=== PATIENT | male | born 1955 | race Caucasian/White ===

== ENCOUNTER → 2017-05-06 | Outpatient (CLI) | payer BC ==
--- NOTE | 2017-05-06 11:25 | MR ---
EXAMINATION TYPE: MR brain wo con DATE OF EXAM: 05/06/2017 COMPARISON: CT brain March 08, 2016 HISTORY: Memory loss, CVA, and left-sided hyperreflexia all per order. Short-term memory loss and rig ht-sided hearing loss per patient. TECHNIQUE: Multiplanar, multisequence imaging of the brain and brainstem is performed without IV cont rast. FINDINGS: Diffusion weighted images demonstrate no evidence of a recent infarct or other diffusion abnormality. There is no worrisome extra-axial fluid collection. There is persistent mild diffuse ventricular and sulcal prominence consistent with mild age-related cerebral atrophy. Scattered foci of T2 hyperintens ity are seen throughout the deep and periventricular white matter. Approximately 40-50 small lesions are present with largest measuring 5 mm left parietal level on axial image 18. Midline structures demonstrate normal morphology. The craniocervical junction appears within normal limits. Normal vascular flow voids are present. The visualized sinuses are clear and the globes are i ntact. Increased fluid signal right mastoid air cells is redemonstrated. IMPRESSION: 1. No evidence of a recent infarct. 2. Mild diffuse age-related cerebral atrophy and mild to moderate chronic small vessel ischemic silveira e is felt present. 3. Persistent increased fluid signal right mastoid air cells raises concern for right-sided mastoidit is. Clinical correlation advised.
== END | disposition home or self-care (01) ==
LOC: RADMRIMAIN 10:43
PROVIDERS: ATTEND Psychiatry & Neurology Neurology
DX: R41.3 Other amnesia (principal); R53.1 Weakness; I63.9 Cerebral infarction, unspecified
CPT/HCPCS: 70551

== ENCOUNTER → 2017-07-06 | Outpatient (CLI) | payer BC ==
--- NOTE | 2017-07-06 18:53 | CONS ---
CONSULTATION DATE OF SERVICE: 07/06/2017 A 61-year-old gentleman has been evaluated in the sleep center for possible obstructive sleep apnea-hypopnea syndrome. HISTORY OF PRESENT ILLNESS AND SLEEP-WAKE EVALUATION: Patient's usual sleep schedule from 10:30 p.m. until 5:30 a.m. He does not have problem with falling asleep, although has TV set in bedroom. He sleeps usually on the side position with snoring. Snoring is very loud, so his cannot sleep in the same room with him. He wakes up from sleep 3 times with nocturia, dry mouth, grinding teeth. During the day, he may feel some sleepiness. [place] Sleepiness Scale is 9. PAST MEDICAL HISTORY: Hypertension, diabetes, hyperlipidemia. PAST SURGICAL HISTORY: Tonsillectomy, adenoidectomy, uvulectomy. FAMILY HISTORY: Hypertension, heart problems, hyperlipidemia, stroke, snoring, diabetes. MEDICATIONS: 1. Crestor. 2. Glipizide. 3. Bystolic. SOCIAL HISTORY: Positive history of smoking about 1 pack per week, quit more than 15 years ago. Alcohol consumption up to a 6-pack daily. REVIEW OF SYSTEMS: Multiple awakenings from sleep, sleepiness and tiredness during the day. PHYSICAL EXAMINATION: GENERAL: A 61-year-old gentleman without distress. VITAL SIGNS: BP 137/80, HR 90, RR 16, height 5 feet 7-1/2 inches, weight 200.4, BMI 30.8. Neck 17-1/2 inches in circumference. Temperature 98.4, oxygen saturation on room air 97%. HEENT: PERRLA, EOMI, evaluation of oropharynx showed tongue protrudes midline, low position of soft palate. A very short distance between soft palate and pharyngeal wall. No uvula. Restriction of nasal breathing. NECK: Supple, no JVD. Thyroid is not palpable. LUNGS: Clear to percussion and to auscultation. Good air exchange. No wheezing or rhonchi. HEART: S1, S2 with some extra systoles. ABDOMEN: Obese, soft and nontender. Bowel sounds are present. No organomegaly appreciated. EXTREMITIES: No clubbing or cyanosis. 1+ ankle edema. HEALTH EDUCATION ASSISTANT: Awake, alert, and oriented X3. Cranial nerves 2 to 7 intact. There is no fasciculation or atrophy. noted. No focal deficits observed. IMPRESSION: 1. Snoring, multiple awakenings from sleep, low position of soft palate, restriction of nasal breathing, wide neck, obesity, obstructive sleep apnea-hypopnea syndrome. 2. Obesity, body mass index 30.8. 3. Hypertension. 4. Diabetes mellitus. 5. Hyperlipidemia. 6. Status post tonsillectomy and adenoidectomy. 7. Status post uvulectomy. 8. Mild swelling of ankles. PLAN: 1. Polysomnography for evaluation of patient's breathing during sleep. 2. CPAP/BiPAP titration if sleep study confirms obstructive sleep apnea-hypopnea syndrome. 3. Preferable position during sleep on the side. 4. No driving if patient feels any sleepiness. Patient is aware of civil and criminal liability for unsafe driving. 5. I will see patient for follow up visit to explain results of testing and following plan. Thank you very much for referring this patient for consultation. Sincerely, Mauri Sandoval MD, PhD, FAASM Diplomat of [place] [employer] [place] [employer] Joint Supervisor of [facility] [place] MMODL / IJN: [id number] /
== END ==
LOC: SLEEP 16:27
PROVIDERS: ATTEND Internal Medicine
DX: G47.33 Obstructive sleep apnea (adult) (pediatric) (principal); E66.9 Obesity, unspecified; I10 Essential (primary) hypertension; E11.9 Type 2 diabetes mellitus without complications; E78.5 Hyperlipidemia, unspecified; M79.89 Other specified soft tissue disorders; Z68.30 Body mass index [BMI] 30.0-30.9, adult; Z90.89 Acquired absence of other organs; Z79.899 Other long term (current) drug therapy; Z87.891 Personal history of nicotine dependence
CPT/HCPCS: 99211

== ENCOUNTER → 2017-10-20 | Outpatient (CLI) | payer BC ==
--- NOTE | 2017-10-20 18:44 | PN ---
PROGRESS NOTE DATE OF SERVICE: 10/20/2017 This patient is a 62-year-old gentleman who has been followed in the sleep center for treatment of severe obstructive sleep apnea-hypopnea syndrome. Recently patient had a polysomnogram and CPAP titration, and I discussed results of sleep studies with the patient and family in detail. The patient was started on treatment with CPAP and uses the equipment every night for the whole night. He sleeps better. He feels better during the day and he does not snore anymore like he did before. I checked his CPAP unit. Usage is 100% of the time for more than 4 hours, average usage 5.9 hours. Pressure is in the range of 10.7 to 11 cm of water. Leak is 29 L/minute. Apnea-hypopnea index 3.6 for the last month, which is in normal range. [place] Sleepiness Scale today is 3. MEDICATIONS: 1. Crestor. 2. Glipizide. 3. Bystolic. PHYSICAL EXAMINATION: Patient in no distress. BP 157/80, HR 88, RR 16, weight 202, temperature 98.9, oxygen saturation at room air 97%. HEENT: PERRLA, EOMI. Evaluation of oropharynx showed tongue protrudes midline; moderately low position of soft palate. Short distance between the soft palate and posterior pharyngeal wall. Status post uvulectomy. NECK: Supple. No JVD. Thyroid is not palpable. LUNGS: Clear to percussion and to auscultation. Good air exchange. No wheezing or rhonchi. HEART: S1, S2 regular. No murmurs, gallops or rubs. ABDOMEN: Slightly obese. EXTREMITIES : No clubbing or cyanosis. ACADEMIC COUNSELOR: Awake, alert, and oriented X3. Cranial nerves 2 to 7 intact. There is no fasciculation or atrophy. noted. No focal deficits observed. IMPRESSION: 1. Severe obstructive sleep apnea/hypopnea syndrome. Apnea-hypopnea index 40.2 with oxygen desaturation to 82%, under control with CPAP at 11 cm of water. Patient demonstrated 100% compliance with treatment, benefitting from treatment. 2. Periodic limb movements have been documented during titration. No leg movements at the present time while on treatment with CPAP. 3. Obesity. 4. Hypertension. 5. Diabetes mellitus. 6. Hyperlipidemia. 7. Status post tonsillectomy and adenoidectomy. 8. Status post uvulectomy. 9. History of mild swelling of the legs. PLAN: 1. Continue treatment with CPAP every night with the same regimen. 2. Losing weight. 3. Sleep hygiene with regular time in bed for at least 8 hours. 4. No driving if feeling any sleepiness. 5. We will consider using [employer] nasal pillows. Thank you very much for allowing me to participate in the management of your patient. Sincerely, Mauri Sandoval MD, PhD, FAASM Diplomat of [place] [employer] [place] [employer] Negotiator Sales of [facility] [employer] MMODL / IJN: [id number] /
== END | disposition home or self-care (01) ==
LOC: SLEEP 16:02
PROVIDERS: ATTEND Internal Medicine
DX: G47.33 Obstructive sleep apnea (adult) (pediatric) (principal); G47.61 Periodic limb movement disorder; E66.9 Obesity, unspecified; I10 Essential (primary) hypertension; E11.9 Type 2 diabetes mellitus without complications; E78.5 Hyperlipidemia, unspecified; Z99.89 Dependence on other enabling machines and devices; Z90.89 Acquired absence of other organs; Z79.899 Other long term (current) drug therapy

== ENCOUNTER 2018-02-20 16:45 | Emergency (ER) | payer BC ==
[2018-02-20 16:54] VITALS: RESP 18
[2018-02-20 17:32] LABS: Basophils % (A) 0 %; Eosinophils # (A) 0.1 k/uL (0-0.7); Eosinophils % (A) 1 %; HCT 46.1 % (39.0-53.0); HGB 15.7 gm/dL (13.0-17.5); Lymphocytes # (A) 1.1 k/uL (1.0-4.8); Lymphocytes % (A) 13 %; MCH 31.6 pg (25.0-35.0); Monocytes # (A) 0.5 k/uL (0-1.0); Monocytes % (A) 6 %; Neutrophils # (A) 6.8 k/uL (1.3-7.7); Neutrophils % (A) 77 %; Platelet Count 189 k/uL (150-450); RBC 4.96 m/uL (4.30-5.90); RDW 13.6 % (11.5-15.5); WBC 8.8 k/uL (3.8-10.6)
[2018-02-20 17:42] LABS: Calcium 9.1 mg/dL (8.4-10.2); Potassium 4.4 mmol/L (3.5-5.1); Total Bilirubin 0.6 mg/dL (0.2-1.3); Total Protein 6.4 g/dL (6.3-8.2)
[2018-02-20 17:51] LABS: Creatine Kinase 155 U/L (55-170)
[2018-02-20 18:03] LABS: Troponin I <0.012 ng/mL (0.000-0.034)
[2018-02-20 18:06] LABS: Creatine Kinase MB 2.5 ng/mL (0.0-2.4)
--- NOTE | 2018-02-20 20:44 | ED ---
SOB HPI - General Chief Complaint: Shortness of Breath Stated Complaint: dyspnea, poss chf Time Seen by Provider: 02/20/18 20:25 Source: patient, RN notes reviewed Mode of arrival: ambulatory Limitations: no limitations - History of Present Illness Initial Comments: This is a 62-year-old male who presents to the emergency department with chief complaint of shortness of breath for the past one month. Patient states that he contacted his primary care provider, Dr. Montana, but was unable to get in for an appointment. He presented to [facility] today and had blood work and a chest x-ray. Patient was sent to the emergency department because he was told there was fluid on his lungs. Patient also reports chest discomfort when he takes a deep breath in. Patient states that his shortness of breath is on exertion. He also states that he has bilateral lower extremity swelling. Denies any recent falls, injuries or trauma. Denies any personal cardiac history. Denies fevers or chills, abdominal pain, nausea or vomiting, diarrhea or constipation, dysuria or hematuria. - Related Data Home Medications Medication Instructions Recorded Confirmed Aspirin [Adult Low Dose Aspirin EC] 81 mg PO DAILY 02/20/18 02/20/18 Levothyroxine Sodium [Synthroid] 25 mcg PO DAILY 02/20/18 02/20/18 Rosuvastatin Calcium [Crestor] 10 mg PO DAILY 02/20/18 02/20/18 glipiZIDE XL [Glucotrol Xl] 5 mg PO BID 02/20/18 02/20/18 Allergies Allergy/AdvReac Type Severity Reaction Status Date / Time No Known Allergies Allergy Verified 02/20/18 21:00 Review of Systems ROS Statement: Those systems with pertinent positive or pertinent negative responses have been documented in the HPI. ROS Other: All systems not noted in ROS Statement are negative. Past Medical History Past Medical History: Hypertension History of Any Multi-Drug Resistant Organisms: None Reported Past Surgical History: No Surgical Hx Reported Past Psychological History: No Psychological Hx Reported Smoking Status: Never smoker Past Alcohol Use History: Daily Past Drug Use History: None Reported General Exam - General Exam Comments Initial Comments: General: Awake and alert, well-developed; in no apparent distress. HEENT: Head atraumatic, normocephalic. Pupils are equal, round and reactive to light. Extraocular movements intact. Oropharynx moist without erythema or exudate. Neck: Supple. Normal ROM. Cardiovascular: Regular rate and rhythm. No murmurs, rubs or gallops. Chest symmetrical. Respiratory: Lungs clear to auscultation bilaterally. No wheezes, rales or rhonchi. Normal respiratory effort with no use of accessory muscles. Musculoskeletal: Normal ROM, no tenderness bilateral upper and lower extremities. Ambulating normally. Skin: [place], warm and dry without rashes or lesions. 2+ bilateral lower extremity pitting edema. Neurological: Alert and oriented x3. CN II-XII grossly intact. Speech is fluent and answers are appropriate. No focal neuro deficits. Psychiatric: Normal mood and affect. No overt signs of depression or anxiety noted. Limitations: no limitations Course Vital Signs 02/20/18 02/20/18 16:51 21:28 Temperature 97.9 F Pulse Rate 92 83 Respiratory 18 18 Rate Blood Pressure 150/77 O2 Sat by Pulse 96 98 Oximetry Medical Decision Making - Medical Decision Making This is a 62-year-old male who presents to the emergency department with chief complaint of shortness of breath for the past one month. Patient was seen at [facility] and sent to the emergency department for further evaluation. Patient states that his x-ray showed possible CHF and pleural effusions. Patient reports that over the past month he has developed bilateral lower extremity swelling. He denies any significant chest pain but does state that he has discomfort when he takes a deep breath in. EKG revealed normal sinus rhythm. Troponin is negative. BNP was elevated at 736. Chest x-ray revealed evidence for small right pleural effusion and no evidence for heart failure. A d-dimer was collected was elevated at 1.31. I discussed with patient and at bedside recommendation for CTA. They are in agreement. CT anterior chest was obtained and revealed no evidence for acute pulmonary embolisms. It did note a right pleural effusion and infiltrate as well as a left lingular infiltrate. Patient states that he did recently finish a course of steroids and antibiotics. Patient's vital signs have been stable and he is in no acute distress. He will be discharged home with referrals to pulmonology and cardiology for further assessment. Patient is in agreement with this plan and voices understanding. All questions answered. - Lab Data Result diagrams: 02/20/18 17:24 02/20/18 17:24 Lab Results 02/20/18 02/20/18 02/20/18 Range/Units 17:24 17:24 17:24 WBC 8.8 (3.8-10.6) k/uL RBC 4.96 (4.30-5.90) m/uL Hgb 15.7 (13.0-17.5) gm/dL Hct 46.1 (39.0-53.0) % MCV 93.0 (80.0-100.0) fL MCH 31.6 (25.0-35.0) pg MCHC 34.0 (31.0-37.0) g/dL RDW 13.6 (11.5-15.5) % Plt Count 189 (150-450) k/uL Neutrophils % 77 % Lymphocytes % 13 % Monocytes % 6 % Eosinophils % 1 % Basophils % 0 % Neutrophils # 6.8 (1.3-7.7) k/uL Lymphocytes # 1.1 (1.0-4.8) k/uL Monocytes # 0.5 (0-1.0) k/uL Eosinophils # 0.1 (0-0.7) k/uL Basophils # 0.0 (0-0.2) k/uL D-Dimer (<0.60) mg/L FEU Sodium 139 (137-145) mmol/L Potassium 4.4 (3.5-5.1) mmol/L Chloride 103 (98-107) mmol/L Carbon Dioxide 25 (22-30) mmol/L Anion Gap 11 mmol/L BUN 20 (9-20) mg/dL Creatinine 1.08 (0.66-1.25) mg/dL Est GFR (CKD-EPI)AfAm 84 (>60 ml/min/1.73 sqM) Est GFR (CKD-EPI)NonAf 73 (>60 ml/min/1.73 sqM) Glucose 188 H (74-99) mg/dL Calcium 9.1 (8.4-10.2) mg/dL Total Bilirubin 0.6 (0.2-1.3) mg/dL AST 25 (17-59) U/L ALT 44 (21-72) U/L Alkaline Phosphatase 48 (38-126) U/L Total Creatine Kinase 155 (55-170) U/L CK-MB (CK-2) 2.5 H* (0.0-2.4) ng/mL CK-MB (CK-2) Rel Index 1.6 Troponin I <0.012 (0.000-0.034) ng/mL NT-Pro-B Natriuret Pep pg/mL Total Protein 6.4 (6.3-8.2) g/dL Albumin 4.0 (3.5-5.0) g/dL 02/20/18 02/20/18 Range/Units 17:24 17:24 WBC (3.8-10.6) k/uL RBC (4.30-5.90) m/uL Hgb (13.0-17.5) gm/dL Hct (39.0-53.0) % MCV (80.0-100.0) fL MCH (25.0-35.0) pg MCHC (31.0-37.0) g/dL RDW (11.5-15.5) % Plt Count (150-450) k/uL Neutrophils % % Lymphocytes % % Monocytes % % Eosinophils % % Basophils % % Neutrophils # (1.3-7.7) k/uL Lymphocytes # (1.0-4.8) k/uL Monocytes # (0-1.0) k/uL Eosinophils # (0-0.7) k/uL Basophils # (0-0.2) k/uL D-Dimer 1.31 H (<0.60) mg/L FEU Sodium (137-145) mmol/L Potassium (3.5-5.1) mmol/L Chloride (98-107) mmol/L Carbon Dioxide (22-30) mmol/L Anion Gap mmol/L BUN (9-20) mg/dL Creatinine (0.66-1.25) mg/dL Est GFR (CKD-EPI)AfAm (>60 ml/min/1.73 sqM) Est GFR (CKD-EPI)NonAf (>60 ml/min/1.73 sqM) Glucose (74-99) mg/dL Calcium (8.4-10.2) mg/dL Total Bilirubin (0.2-1.3) mg/dL AST (17-59) U/L ALT (21-72) U/L Alkaline Phosphatase (38-126) U/L Total Creatine Kinase (55-170) U/L CK-MB (CK-2) (0.0-2.4) ng/mL CK-MB (CK-2) Rel Index Troponin I (0.000-0.034) ng/mL NT-Pro-B Natriuret Pep 736 pg/mL Total Protein (6.3-8.2) g/dL Albumin (3.5-5.0) g/dL - EKG Data EKG Comments: 17:44:08. Normal sinus rhythm, possible left atrial enlargement. Ventricular rate 85 bpm, MO interval 144, QRS duration 88, QT/QTC 380/452 - Radiology Data Radiology results: report reviewed, image reviewed Chest x-ray impression: Small right pleural effusion. No heart failure seen. CT angio chest impression: No evidence of pulmonary embolism. Right pleural effusion and right basilar pulmonary infiltrate and atelectasis. Small lingular infiltrate. Disposition Clinical Impression: Pleural effusion, Dyspnea on exertion Disposition: HOME SELF-CARE Condition: Good Instructions: Pleural Effusion (ED), Dyspnea (ED) Additional Instructions: Please follow-up with Dr. Cuevas, [facility] for further evaluation. Please follow up with primary care provider within 1-2 days. Return to emergency department if symptoms should worsen or any concerns arise. Is patient prescribed a controlled substance at d/c from ED?: No Referrals: Venu Montana DO [Primary Care Provider] - 1-2 days Robby Cuevas MD [STAFF PHYSICIAN] - 1-2 days Bravo Schwarz MD [STAFF PHYSICIAN] - 1-2 days Time of Disposition: 22:44
--- NOTE | 2018-02-20 21:07 | XR ---
EXAMINATION TYPE: XR chest 2V DATE OF EXAM: 02/20/2018 COMPARISON: NONE HISTORY: Difficulty breathing TECHNIQUE: Frontal and lateral views of the chest are obtained. FINDINGS: Heart and mediastinum are normal. There is some blunting of right costophrenic angle. Ther e is no gross heart failure. Bony thorax is intact. Lungs are clear of consolidation. IMPRESSION: Small right pleural effusion. No heart failure seen.
--- NOTE | 2018-02-20 22:34 | CT ---
EXAMINATION TYPE: CT angio chest DATE OF EXAM: 02/20/2018 10:26 PM COMPARISON: NONE HISTORY: Elevated d-dimer, dyspnea, and bilateral lower leg edema. CT DLP: 621 mGycm Automated exposure control for dose reduction was used. CONTRAST: CTA scan of the thorax is performed with IV Contrast, patient injected with 75ml mL of Isovue M300, p ulmonary embolism protocol. There are 3-D post processed images.. FINDINGS: There is mild to moderate right pleural effusion. There is some atelectasis and infiltrate at the rig ht lung base. There is no pericardial effusion. Heart is slightly enlarged. There are bilateral bronc hial lymph nodes measure up to 1 cm. There is no mediastinal adenopathy. Thoracic aorta appears theodora l. There is no evidence of aneurysm or dissection. Ascending aorta measures 3.4 cm. I see no filling defects in the pulmonary arteries. The bony thorax is intact. There is some mild travis ear density in the lingula left upper lobe. IMPRESSION: NO EVIDENCE OF PULMONARY EMBOLISM. RIGHT PLEURAL EFFUSION AND RIGHT BASILAR PULMONARY INFILTRATE AND ATELECTASIS. SMALL LINGULA INFILTRATE.
[2018-02-20 23:32] VITALS: BP 186/98; PULSE 77; TEMP 98.1
== END 2018-02-20 23:30 | disposition home or self-care (01) ==
LOC: EC 16:45
DX: J90 Pleural effusion, not elsewhere classified (principal); R06.00 Dyspnea, unspecified; R91.8 Other nonspecific abnormal finding of lung field; I10 Essential (primary) hypertension; Z79.82 Long term (current) use of aspirin; Z79.84 Long term (current) use of oral hypoglycemic drugs; Z79.899 Other long term (current) drug therapy
CPT/HCPCS: 36415; 93005; 85379; 83880; 80053; 82550; 82553; 84484; 85025; 71046; 71275; 99285; Q9967

== ENCOUNTER 2018-02-28 09:26 | Inpatient (IN) | payer BC ==
[2018-02-28] MEDS ORDERED: DILTIAZEM DRIP BOLUS FROM BAG 1 MG SOLN IV ONE ×2 (10:13→11:48)
[2018-02-28] MEDS ORDERED: DILTIAZEM 50 MG in SODIUM CHLORIDE 0.9% 40 ML IV SCH (10:15)
--- NOTE | 2018-02-28 10:19 | ED ---
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 Patient's heart rate has been going between 100 4050 beats a minute. He denies any chest pain he has no feelings of palpitations or tachycardia he has had some exertional dyspnea recently. He has had some edema to his lower extremities which doesn't go away quite as easily as it used to. He has no other complaints no other modifying factors at this time. MD Complaint: rapid heart beat - Related Data Home Medications Medication Instructions Recorded Confirmed Aspirin [Adult Low Dose Aspirin EC] 81 mg PO DAILY 02/20/18 02/28/18 Levothyroxine Sodium [Synthroid] 25 mcg PO DAILY 02/20/18 02/28/18 Rosuvastatin Calcium [Crestor] 10 mg PO DAILY 02/20/18 02/28/18 glipiZIDE XL [Glucotrol Xl] 5 mg PO DAILY 02/20/18 02/28/18 Nebivolol [Bystolic] 5 mg PO HS 02/28/18 02/28/18 Allergies Allergy/AdvReac Type Severity Reaction Status Date / Time No Known Allergies Allergy Verified 02/28/18 10:04 Review of Systems ROS Statement: Those systems with pertinent positive or pertinent negative responses have been documented in the HPI. ROS Other: All systems not noted in ROS Statement are negative. Past Medical History Past Medical History: Heart Failure, Hypertension History of Any Multi-Drug Resistant Organisms: None Reported Past Surgical History: Adenoidectomy, Tonsillectomy Past Psychological History: No Psychological Hx Reported Smoking Status: Former smoker Past Alcohol Use History: Daily Past Drug Use History: None Reported General Exam - General Exam Comments Initial Comments: This a well-developed well-nourished awake alert oriented 3 male Limitations: no limitations General appearance: alert, in no apparent distress Head exam: Present: atraumatic, normocephalic, normal inspection Eye exam: Present: normal appearance, PERRL, EOMI. Absent: scleral icterus, conjunctival injection, periorbital swelling ENT exam: Present: normal exam, mucous membranes moist Neck exam: Present: normal inspection. Absent: tenderness, meningismus, lymphadenopathy Respiratory exam: Present: rales (Right lower lobe rales). Absent: respiratory distress, wheezes, rhonchi, stridor Cardiovascular Exam: Present: tachycardia, normal heart sounds. Absent: systolic murmur, diastolic murmur, rubs, gallop, clicks GI/Abdominal exam: Present: soft, normal bowel sounds. Absent: distended, tenderness, guarding, rebound, rigid Extremities exam: Present: full ROM, normal capillary refill, pedal edema ( Trace edema bilaterally). Absent: tenderness, joint swelling, calf tenderness Back exam: Present: normal inspection Neurological exam: Present: alert, oriented X3, CN II-XII intact Psychiatric exam: Present: normal affect, normal mood Skin exam: Present: warm, dry, intact, normal color. Absent: rash Course Vital Signs 02/28/18 02/28/18 09:29 10:50 Temperature 98 F Pulse Rate 150 H 149 H Respiratory 20 18 Rate Blood Pressure 149/96 144/108 O2 Sat by Pulse 97 97 Oximetry - Reevaluation(s) Reevaluation #1: 02/28/18 11:48 Patient is still tachycardic after initial medication. Workers and will be admitted Reevaluation #2: 02/28/18 11:51 Rest patient has no chest pain or shortness of breath. EKG Findings - EKG Results: EKG: interpreted by ERMD (Atrial flutter with a variable AV block rate was 1 50/ m QRS 80 QT since QTC 344/[address] configuration this is compared with an EKG submitted from Dr. Cuevas's office.) Medical Decision Making - Medical Decision Making I did discuss findings with patient family and Dr. Malhotra the patient be admitted with cardiology consultation atrial flutter with rapid ventricular response also CHF. - Lab Data Result diagrams: 02/28/18 09:41 02/28/18 09:41 Lab Results 02/28/18 02/28/18 02/28/18 Range/Units 09:41 09:41 09:41 WBC 7.4 (3.8-10.6) k/uL RBC 5.16 (4.30-5.90) m/uL Hgb 15.8 (13.0-17.5) gm/dL Hct 48.0 (39.0-53.0) % MCV 93.1 (80.0-100.0) fL MCH 30.7 (25.0-35.0) pg MCHC 33.0 (31.0-37.0) g/dL RDW 13.8 (11.5-15.5) % Plt Count 235 (150-450) k/uL Neutrophils % 67 % Lymphocytes % 21 % Monocytes % 7 % Eosinophils % 1 % Basophils % 1 % Neutrophils # 4.9 (1.3-7.7) k/uL Lymphocytes # 1.6 (1.0-4.8) k/uL Monocytes # 0.6 (0-1.0) k/uL Eosinophils # 0.1 (0-0.7) k/uL Basophils # 0.1 (0-0.2) k/uL PT (9.0-12.0) sec INR (<1.2) APTT (22.0-30.0) sec Sodium 138 (137-145) mmol/L Potassium 5.3 H (3.5-5.1) mmol/L Chloride 105 (98-107) mmol/L Carbon Dioxide 20 L (22-30) mmol/L Anion Gap 13 mmol/L BUN 20 (9-20) mg/dL Creatinine 1.12 (0.66-1.25) mg/dL Est GFR (CKD-EPI)AfAm 81 (>60 ml/min/1.73 sqM) Est GFR (CKD-EPI)NonAf 70 (>60 ml/min/1.73 sqM) Glucose 193 H (74-99) mg/dL Calcium 9.4 (8.4-10.2) mg/dL Magnesium 2.0 (1.6-2.3) mg/dL Total Bilirubin 0.7 (0.2-1.3) mg/dL AST 45 (17-59) U/L ALT 67 (21-72) U/L Alkaline Phosphatase 57 (38-126) U/L Total Creatine Kinase 160 (55-170) U/L CK-MB (CK-2) 2.6 H* (0.0-2.4) ng/mL CK-MB (CK-2) Rel Index 1.6 Troponin I <0.012 (0.000-0.034) ng/mL NT-Pro-B Natriuret Pep pg/mL Total Protein 6.6 (6.3-8.2) g/dL Albumin 4.0 (3.5-5.0) g/dL TSH 4.910 H (0.465-4.680) mIU/L 02/28/18 02/28/18 Range/Units 09:41 09:41 WBC (3.8-10.6) k/uL RBC (4.30-5.90) m/uL Hgb (13.0-17.5) gm/dL Hct (39.0-53.0) % MCV (80.0-100.0) fL MCH (25.0-35.0) pg MCHC (31.0-37.0) g/dL RDW (11.5-15.5) % Plt Count (150-450) k/uL Neutrophils % % Lymphocytes % % Monocytes % % Eosinophils % % Basophils % % Neutrophils # (1.3-7.7) k/uL Lymphocytes # (1.0-4.8) k/uL Monocytes # (0-1.0) k/uL Eosinophils # (0-0.7) k/uL Basophils # (0-0.2) k/uL PT 11.1 (9.0-12.0) sec INR 1.2 H (<1.2) APTT 25.1 (22.0-30.0) sec Sodium (137-145) mmol/L Potassium (3.5-5.1) mmol/L Chloride (98-107) mmol/L Carbon Dioxide (22-30) mmol/L Anion Gap mmol/L BUN (9-20) mg/dL Creatinine (0.66-1.25) mg/dL Est GFR (CKD-EPI)AfAm (>60 ml/min/1.73 sqM) Est GFR (CKD-EPI)NonAf (>60 ml/min/1.73 sqM) Glucose (74-99) mg/dL Calcium (8.4-10.2) mg/dL Magnesium (1.6-2.3) mg/dL Total Bilirubin (0.2-1.3) mg/dL AST (17-59) U/L ALT (21-72) U/L Alkaline Phosphatase (38-126) U/L Total Creatine Kinase (55-170) U/L CK-MB (CK-2) (0.0-2.4) ng/mL CK-MB (CK-2) Rel Index Troponin I (0.000-0.034) ng/mL NT-Pro-B Natriuret Pep 2070 pg/mL Total Protein (6.3-8.2) g/dL Albumin (3.5-5.0) g/dL TSH (0.465-4.680) mIU/L - Radiology Data Radiology results: report reviewed (I did review the imaging no evidence of a small right pleural effusion. Some evidence of congestive findings.), image reviewed Critical Care Time Critical Care Time: Yes Critical Care Time: 37 minutes of critical care time which includes initial conversation with Dr. Cuevas also history physical labs x-rays several reevaluation the patient response to therapy discuss with the patient and his regarding findings discussed with Dr. Malhotra review of old charting that was available admission orders and documentation of the above Disposition Clinical Impression: Atrial flutter, Atrial flutter with rapid ventricular response, Congestive heart failure (CHF), Pleural effusion Disposition: ADMITTED IP TO THIS [facility] Condition: Stable Referrals: Venu Montana DO [Primary Care Provider] - 1-2 days
[2018-02-28] MEDS ORDERED: HEPARIN SODIUM,PORCINE 10,000 UNIT/ML 1 ML VIAL IV STA (10:20)
[2018-02-28 10:44] LABS: Calcium 9.4 mg/dL (8.4-10.2); Potassium 5.3 mmol/L (3.5-5.1); Total Bilirubin 0.7 mg/dL (0.2-1.3); Total Protein 6.6 g/dL (6.3-8.2)
[2018-02-28] MEDS: HEPARIN SOD,PORK IN 0.45% NACL 25,000 UNIT in 0.45% NACL 1 500ML.BAG IV SCH (10:45)
[2018-02-28 10:49] LABS: Basophils # (A) 0.1 k/uL (0-0.2); Basophils % (A) 1 %; Eosinophils # (A) 0.1 k/uL (0-0.7); Eosinophils % (A) 1 %; HGB 15.8 gm/dL (13.0-17.5); Lymphocytes # (A) 1.6 k/uL (1.0-4.8); Lymphocytes % (A) 21 %; MCH 30.7 pg (25.0-35.0); MCV 93.1 fL (80.0-100.0); Mean Platelet Volume 7.7; Monocytes # (A) 0.6 k/uL (0-1.0); Monocytes % (A) 7 %; Neutrophils # (A) 4.9 k/uL (1.3-7.7); Neutrophils % (A) 67 %; Platelet Count 235 k/uL (150-450); RBC 5.16 m/uL (4.30-5.90); RDW 13.8 % (11.5-15.5); WBC 7.4 k/uL (3.8-10.6)
[2018-02-28 10:50] LABS: Creatine Kinase 160 U/L (55-170)
[2018-02-28 10:53] LABS: INR 1.2 (<1.2); Partial Thromboplastin Time 25.1 sec (22.0-30.0); Prothrombin Time 11.1 sec (9.0-12.0)
[2018-02-28 11:02] LABS: Troponin I <0.012 ng/mL (0.000-0.034)
[2018-02-28 11:06] LABS: Creatine Kinase MB 2.6 ng/mL (0.0-2.4)
[2018-02-28] MEDS ORDERED: ASPIRIN 325 MG TAB PO STA (11:53)
[2018-02-28] MEDS: DILTIAZEM 50 MG in SODIUM CHLORIDE 0.9% 40 ML IV SCH ×4 (12:20→22:51)
[2018-02-28 16:51] LABS: Glucose,Whole Blood 131 mg/dL (75-99)
[2018-02-28] MEDS: FUROSEMIDE 40 MG TAB PO SCH ×2 (17:29→22:51)
[2018-02-28] MEDS: INSULIN ASPART 100 UNIT/ML 1 ML 10 ML VIAL SQ SCH ×2 (17:29→20:45)
[2018-02-28 20:43] LABS: Glucose,Whole Blood 177 mg/dL (75-99)
[2018-02-28] MEDS ORDERED: NEBIVOLOL 5 MG TAB PO SCH (21:00)
[2018-03-01] MEDS: HEPARIN SOD,PORK IN 0.45% NACL 25,000 UNIT in 0.45% NACL 1 500ML.BAG IV SCH (02:26)
[2018-03-01] MEDS: INSULIN ASPART 100 UNIT/ML 1 ML 10 ML VIAL SQ SCH ×4 (05:43→21:23)
[2018-03-01 05:53] LABS: Glucose,Whole Blood 134 mg/dL (75-99)
[2018-03-01] MEDS ORDERED: LEVOTHYROXINE 25 MCG TAB PO SCH (06:30)
[2018-03-01] MEDS: DILTIAZEM 50 MG in SODIUM CHLORIDE 0.9% 40 ML IV SCH (08:06)
[2018-03-01] MEDS: ASPIRIN 325 MG TAB PO SCH (08:11)
[2018-03-01] MEDS: FUROSEMIDE 40 MG TAB PO SCH ×2 (08:11→16:54)
[2018-03-01] MEDS: ATORVASTATIN 20 MG TAB PO SCH (08:11)
[2018-03-01] MEDS ORDERED: NON-FORMULARY DRUG (Aspirin [Adult Low Dose Aspirin Ec] 81 MG) PO SCH (09:00)
[2018-03-01] MEDS ORDERED: METOPROLOL TARTRATE 12.5 MG TAB PO SCH (09:45)
--- NOTE | 2018-03-01 09:58 | P.CRDCN ---
History of Present Illness Consult date: 03/01/18 Chief complaint: Shortness of breath History of present illness: This is a pleasant 61-year-old gentleman with a past medical history significant for diabetes, hypertension, and dyslipidemia, was sent directly from Dr. Cuevas to the hospital after he was found to be tachycardic. The patient was directly referred to the emergency room. He was found to be in atrial flutter with RVR. Subsequently he was started on Cardizem drip and converted to normal sinus mechanism. No prior history of atrial flutter or cardiac arrhythmia. No history of coronary artery disease or congestive heart failure in the past. The patient does not follow with any cold header. He denies having any chest pain or chest discomfort but he was having some shortness of breath. No dizziness or lightheadedness, syncope, feeling of heart racing or fluttering. The patient converted to normal sinus mechanism and he has been maintaining normal sinus mechanism. Please note that the patient does drink about 6 packs of beer every day. He also does have history of sleep apnea and uses a CPAP machine. An echocardiogram was performed and we will follow-up on that. He is on Bystolic and we will increase the dose. I will DC the Cardizem drip since the patient was converted. The TSH was checked and came in to be abnormal. He will be started on oral anticoagulation down the line but meanwhile will start the patient on heparin IV because there is a possibility that he might need pleurocentesis. Past Medical History Past Medical History: Heart Failure, Hypertension History of Any Multi-Drug Resistant Organisms: None Reported Past Surgical History: Adenoidectomy, Tonsillectomy Past Psychological History: No Psychological Hx Reported Smoking Status: Former smoker Past Alcohol Use History: Daily Past Drug Use History: None Reported Medications and Allergies Home Medications Medication Instructions Recorded Confirmed Type Aspirin [Adult Low Dose Aspirin EC] 81 mg PO DAILY 02/20/18 02/28/18 History Rosuvastatin Calcium [Crestor] 10 mg PO DAILY 02/20/18 02/28/18 History glipiZIDE XL [Glucotrol XL] 5 mg PO DAILY 02/20/18 02/28/18 History Furosemide [Lasix] 40 mg PO BID@0900,1600 #60 tab 03/01/18 Rx Levothyroxine Sodium [Synthroid] 50 mcg PO DAILY@0630 #30 tab 03/01/18 Rx Nebivolol [Bystolic] 10 mg PO HS #0 03/01/18 02/28/18 Rx Allergies Allergy/AdvReac Type Severity Reaction Status Date / Time No Known Allergies Allergy Verified 02/28/18 10:04 Physical Exam Vitals: Vital Signs Temp Pulse Pulse Resp BP BP Pulse Ox 03/01/18 08:00 98 F 67 16 110/69 97 03/01/18 04:00 98.0 F 58 L 18 129/81 97 03/01/18 00:00 97.6 F 70 18 124/67 95 02/28/18 22:26 96 02/28/18 20:00 97.9 F 108 H 18 118/69 95 02/28/18 12:13 97.5 F L 149 H 18 123/80 95 02/28/18 10:50 149 H 18 144/108 97 Intake and Output 02/28/18 03/01/18 03/01/18 22:59 06:59 14:59 Intake Total 782.666 582.281 360 Balance 782.666 582.281 360 Intake: IV 240 0.9 160 Heparin Sod,Pork in 0.45% 80 NaCl 25,000 unit In 0.45 % NaCl 1 500ml.bag @ 10. 914 UNITS/KG/HR 20 mls/hr IV .Q24H [facility] Rx#: [id number] Intake, IV Titration 302.666 342.281 Amount Diltiazem 50 mg In Sodium 78.333 47.25 Chloride 0.9% 40 ml @ 10 MG/HR 10 mls/hr IV .Q5H [facility] Rx#:[id number] Diltiazem 50 mg In Sodium 120 Chloride 0.9% 40 ml @ 5 MG/HR 5 mls/hr IV .Q10H [facility] Rx#:[id number] Heparin Sod,Pork in 0.45% 224.333 175.031 NaCl 25,000 unit In 0.45 % NaCl 1 500ml.bag @ 10. 914 UNITS/KG/HR 20 mls/hr IV .Q24H [facility] Rx#: [id number] Oral 480 360 Other: Voiding Method Toilet Toilet # Voids 2 Weight 92 kg - Constitutional General appearance: no acute distress - Respiratory Respiratory: right: CTA - Cardiovascular Rhythm: regular Heart sounds: normal: S1, S2 Results 02/28/18 09:41 02/28/18 09:41 Cardiac Enzymes 02/28/18 02/28/18 02/28/18 Range/Units 09:41 09:41 18:18 AST 45 (17-59) U/L CK-MB (CK-2) 2.6 H* (0.0-2.4) ng/mL Troponin I <0.012 <0.012 (0.000-0.034) ng/mL 03/01/18 Range/Units 00:16 AST (17-59) U/L CK-MB (CK-2) (0.0-2.4) ng/mL Troponin I <0.012 (0.000-0.034) ng/mL Coagulation 18 02/28/18 03/01/18 Range/Units 09:41 21:31 03:55 PT 11.1 (9.0-12.0) sec APTT 25.1 33.0 H 43.5 H (22.0-30.0) sec CBC 02/28/18 Range/Units 09:41 WBC 7.4 (3.8-10.6) k/uL RBC 5.16 (4.30-5.90) m/uL Hgb 15.8 (13.0-17.5) gm/dL Hct 48.0 (39.0-53.0) % Plt Count 235 (150-450) k/uL Comprehensive Metabolic Panel 02/28/18 Range/Units 09:41 Sodium 138 (137-145) mmol/L Potassium 5.3 H (3.5-5.1) mmol/L Chloride 105 (98-107) mmol/L Carbon Dioxide 20 L (22-30) mmol/L BUN 20 (9-20) mg/dL Creatinine 1.12 (0.66-1.25) mg/dL Glucose 193 H (74-99) mg/dL Calcium 9.4 (8.4-10.2) mg/dL AST 45 (17-59) U/L ALT 67 (21-72) U/L Alkaline Phosphatase 57 (38-126) U/L Total Protein 6.6 (6.3-8.2) g/dL Albumin 4.0 (3.5-5.0) g/dL Current Medications Generic Name Dose Route Start Last Admin Trade Name Gordoq PRN Reason Stop Dose Admin Aspirin 325 mg 03/01/18 09:00 03/01/18 08:11 Aspirin PO 325 mg DAILY [facility] Administration Atorvastatin Calcium 20 mg 03/01/18 09:00 03/01/18 08:11 Lipitor PO 20 mg DAILY [facility]A Administration Furosemide 40 mg 03/01/18 16:00 Lasix PO BID@0900,1600 [facility] Glipizide 2.5 mg 03/01/18 09:00 03/01/18 08:11 Glucotrol PO 2.5 mg BID [facility] Administration Heparin Sodium/Sodium Chloride 500 mls @ 20 mls/hr 02/28/18 10:15 03/01/18 04 :50 25,000 unit/ Sodium Chloride IV 15.914 units/kg/hr .Q24H [facility] 29.16 mls/hr Titration Protocol 10.914 UNITS/KG/HR Diltiazem HCl 50 mg/ Sodium 50 mls @ 10 mls/hr 02/28/18 12:00 03/01/18 08:06 Chloride IV Not Given .Q5H [facility] 10 MG/HR Insulin Aspart 0 unit 02/28/18 12:30 03/01/18 05:43 Novolog SQ Not Given ACHS [facility] Protocol Levothyroxine Sodium 50 mcg 03/02/18 06:30 Synthroid PO DAILY@0630 [facility] Nebivolol 5 mg 02/28/18 21:00 02/28/18 20:45 Bystolic PO 5 mg HS [facility] Administration Intake and Output 02/28/18 03/01/18 03/01/18 22:59 06:59 14:59 Intake Total 782.666 582.281 360 Balance 782.666 582.281 360 Intake: IV 240 0.9 160 Heparin Sod,Pork in 0.45% 80 NaCl 25,000 unit In 0.45 % NaCl 1 500ml.bag @ 10. 914 UNITS/KG/HR 20 mls/hr IV .Q24H [facility] Rx#: [id number] Intake, IV Titration 302.666 342.281 Amount Diltiazem 50 mg In Sodium 78.333 47.25 Chloride 0.9% 40 ml @ 10 MG/HR 10 mls/hr IV .Q5H [facility] Rx#:[id number] Diltiazem 50 mg In Sodium 120 Chloride 0.9% 40 ml @ 5 MG/HR 5 mls/hr IV .Q10H [facility] Rx#:[id number] Heparin Sod,Pork in 0.45% 224.333 175.031 NaCl 25,000 unit In 0.45 % NaCl 1 500ml.bag @ 10. 914 UNITS/KG/HR 20 mls/hr IV .Q24H [facility] Rx#: [id number] Oral 480 360 Other: Voiding Method Toilet Toilet # Voids 2 Weight 92 kg 02/28/18 09:41 02/28/18 09:41 Assessment and Plan Assessment: Assessment #1 atrial flutter with RVR and the patient converted to normal sinus mechanism #2 diabetes type 2 #3 hypertension #4 alcohol abuse #5 obstructive sleep apnea. Plan #1 in view of the high chads Vascor, portal anticoagulation is recommended. For now he will be on heparin IV for possible pleurocentesis #2 increase the dose of Bystolic #3 follow-up on the echocardiogram #4 follow-up with the patient.
--- NOTE | 2018-03-01 10:39 | P.CNPUL ---
History of Present Illness Consult date: 03/01/18 Reason for consult: other Chief complaint: Atrial fibrillation, pleural effusion History of present illness: Pulmonary consult dated 03/01/2018 62-year-old male who was apparently sent over the from my office to the emergency room. He was in my office and one of my partners for a right-sided pleural effusion. The pleural effusion apparently was noted on a previous admission and a chest x-ray done in the past. A chest x-ray was within my office. Unfortunately, because of the patient's atrial fibrillation/flutter in his rapid ventricular response, the patient was immediately sent to the emergency room where he was evaluated and admitted. He did not have a chest x- ray here and I asked the primary service to order chest x-ray. He is not currently having any shortness of breath. He was restarted on appropriate medications including blood thinners. Pending the results of the chest x-ray, he may or may not need an ultrasound of the chest. He may or may not benefit from thoracentesis pending the result of that. The patient does have a history of heart failure and hypertension as well as hyperlipidemia and hypothyroidism. The patient is a former smoker. Review of Systems A 12 point review of systems is unremarkable this time. He is actually feeling rather well. Past Medical History Past Medical History: Heart Failure, Hypertension History of Any Multi-Drug Resistant Organisms: None Reported Past Surgical History: Adenoidectomy, Tonsillectomy Past Psychological History: No Psychological Hx Reported Smoking Status: Former smoker Past Alcohol Use History: Daily Past Drug Use History: None Reported Medications and Allergies Home Medications Medication Instructions Recorded Confirmed Type Aspirin [Adult Low Dose Aspirin EC] 81 mg PO DAILY 02/20/18 02/28/18 History Rosuvastatin Calcium [Crestor] 10 mg PO DAILY 02/20/18 02/28/18 History glipiZIDE XL [Glucotrol XL] 5 mg PO DAILY 02/20/18 02/28/18 History Furosemide [Lasix] 40 mg PO BID@0900,1600 #60 tab 03/01/18 Rx Levothyroxine Sodium [Synthroid] 50 mcg PO DAILY@0630 #30 tab 03/01/18 Rx Nebivolol [Bystolic] 10 mg PO HS #0 03/01/18 02/28/18 Rx Allergies Allergy/AdvReac Type Severity Reaction Status Date / Time No Known Allergies Allergy Verified 02/28/18 10:04 Physical Exam Osteopathic Statement: *. No significant issues noted on an osteopathic structural exam other than those noted in the History and Physical/Consult. Vitals: Vital Signs Temp Pulse Pulse Resp BP BP Pulse Ox 03/01/18 08:00 98 F 67 16 110/69 97 03/01/18 04:00 98.0 F 58 L 18 129/81 97 03/01/18 00:00 97.6 F 70 18 124/67 95 02/28/18 22:26 96 02/28/18 20:00 97.9 F 108 H 18 118/69 95 02/28/18 12:13 97.5 F L 149 H 18 123/80 95 02/28/18 10:50 149 H 18 144/108 97 Intake and Output 02/28/18 03/01/18 03/01/18 22:59 06:59 14:59 Intake Total 782.666 582.281 360 Balance 782.666 582.281 360 Intake: IV 240 0.9 160 Heparin Sod,Pork in 0.45% 80 NaCl 25,000 unit In 0.45 % NaCl 1 500ml.bag @ 10. 914 UNITS/KG/HR 20 mls/hr IV .Q24H [facility] Rx#: [id number] Intake, IV Titration 302.666 342.281 Amount Diltiazem 50 mg In Sodium 78.333 47.25 Chloride 0.9% 40 ml @ 10 MG/HR 10 mls/hr IV .Q5H [facility] Rx#:[id number] Diltiazem 50 mg In Sodium 120 Chloride 0.9% 40 ml @ 5 MG/HR 5 mls/hr IV .Q10H [facility] Rx#:[id number] Heparin Sod,Pork in 0.45% 224.333 175.031 NaCl 25,000 unit In 0.45 % NaCl 1 500ml.bag @ 10. 914 UNITS/KG/HR 20 mls/hr IV .Q24H [facility] Rx#: [id number] Oral 480 360 Other: Voiding Method Toilet Toilet # Voids 2 Weight 92 kg No acute distress, oriented 3. HEENT examination is grossly unremarkable. Mucous membranes are moist. No oral lesions. Neck supple. Full range of motion. No adenopathy thyromegaly or neck vein distention. Cardiovascular examination reveals regular rhythm rate. S1-S2 normal. No S3 or S4. No discernible murmur noted. Lungs reveal mostly clear breath sounds. No wheezes or rhonchi. Minimal basilar crackles. Abdomen soft bowel sounds are heard. No masses or tenderness. Extremities reveal significant lower extremity pitting edema. Is likely 1-2+. Skin is without rash or lesion. Neurologic examination is brief but nonfocal. Results - Laboratory Findings CBC and BMP: 02/28/18 09:41 02/28/18 09:41 PT/INR, D-dimer PT 11.1 sec (9.0-12.0) 02/28/18 09:41 INR 1.2 (<1.2) H 02/28/18 09:41 Abnormal lab findings: Abnormal Labs 02/28/18 02/28/18 02/28/18 09:41 09:41 09:41 INR 1.2 H APTT Potassium 5.3 H Carbon Dioxide 20 L Glucose 193 H POC Glucose (mg/dL) CK-MB (CK-2) 2.6 H* TSH 4.910 H 02/28/18 02/28/18 02/28/18 16:34 20:41 21:31 INR APTT 33.0 H Potassium Carbon Dioxide Glucose POC Glucose (mg/dL) 131 H 177 H CK-MB (CK-2) TSH 03/01/18 03/01/18 03:55 05:41 INR APTT 43.5 H Potassium Carbon Dioxide Glucose POC Glucose (mg/dL) 134 H CK-MB (CK-2) TSH - Diagnostic Findings Chest x-ray: image reviewed (Labs and medications are reviewed. X-rays are pending.) Assessment and Plan Assessment: Assessment Atrial fibrillation/flutter with a rapid ventricular response History of heart failure. Right-sided pleural effusion History of hypertension History of hyperlipidemia History of hypothyroidism Previous history of tobacco use. Plan: Plan dated 03/01/2018 The patient will get a chest x-ray. We'll go ahead and order an ultrasound the right chest. The patient was initially placed on a Cardizem drip. The patient is now on Bystolic. Other medications are reviewed. Additional recommendations and suggestions are forthcoming. We'll continue to follow. Prognosis is guarded. Time with Patient: Greater than 30
[2018-03-01 11:11] LABS: Basophils # (A) 0.1 k/uL (0-0.2); Basophils % (A) 1 %; Eosinophils # (A) 0.1 k/uL (0-0.7); Eosinophils % (A) 2 %; HCT 45.5 % (39.0-53.0); Lymphocytes # (A) 1.3 k/uL (1.0-4.8); Lymphocytes % (A) 18 %; MCH 31.3 pg (25.0-35.0); MCHC 32.9 g/dL (31.0-37.0); MCV 94.9 fL (80.0-100.0); Mean Platelet Volume 7.2; Monocytes # (A) 0.4 k/uL (0-1.0); Monocytes % (A) 6 %; Neutrophils # (A) 5.1 k/uL (1.3-7.7); Neutrophils % (A) 71 %; Platelet Count 205 k/uL (150-450); RBC 4.79 m/uL (4.30-5.90); RDW 14.4 % (11.5-15.5); WBC 7.1 k/uL (3.8-10.6)
[2018-03-01 11:25] LABS: Calcium 8.8 mg/dL (8.4-10.2); Potassium 4.2 mmol/L (3.5-5.1)
--- NOTE | 2018-03-01 12:15 | XR ---
EXAMINATION TYPE: XR chest 2V DATE OF EXAM: 03/01/2018 COMPARISON: Prior chest x-ray and CT angiogram of the chest 02/20/2018 HISTORY: Pleural effusion TECHNIQUE: Frontal and lateral views of the chest are obtained. FINDINGS: Blunting of the right costophrenic angle persists. Heart size is stable. There is no evide nt pneumothorax. Interstitium is stable. Azygos lobe is noted incidentally. Pulmonary vascularity and jimmy not significantly changed. IMPRESSION: Findings are similar to prior exam. There is right pleural effusion and associated atele ctasis, correlate to exclude pneumonia. Cardiomegaly.
--- NOTE | 2018-03-01 12:16 | US ---
EXAMINATION TYPE: US chest DATE OF EXAM: 03/01/2018 COMPARISON: Chest x-ray same date CLINICAL HISTORY: Pleural effusion, right. EXAM MEASUREMENTS: Right Pleural Effusion fluid pocket: 9.3 cm Right skin to fluid thickness: 3.3 cm Skin to lung 3.4cm. *Please see pics. Lung at 3.4cm within pocket. Right side marked for possible thoracentesis outside the dept. Pulmonologists are able to review the images in the patient?s EMR. IMPRESSIONS: Right pleural effusion
[2018-03-01 12:19] LABS: Glucose,Whole Blood 153 mg/dL (75-99)
--- NOTE | 2018-03-01 15:38 | P.HPIM ---
History of Present Illness H&P Date: 03/01/18 Chief Complaint: Atrial flutter This is a 62-year-old gentleman patient of Dr. [place], Dr. Cuevas. He has underlying history of diabetes mellitus with complications, hypothyroidism and noncompliance medications as patient doesn't want to take too many pain meds, and hyperlipidemia hypertension. He also has pleural effusion being managed by Dr. Cuevas, on his routine visit yesterday for pulmonary check, Dr. Abbott noticed that his heart rate was spitting up, and was found to have to his to one block of atrial flutter. He was subsequently admitted to emergency room. Surprisingly patient does not feel any of these palpitations, he also drinks 6 packs of beer daily, and 1/2 cup of coffee per day, he currently is on beviblock by his PCP. Patient denies any palpitations and lightheadedness chest pain however he does have chronic dependent edema, no diuretics even though he was seen at urgent care In the emergency room, EKG shows atrial flutter heart rate 150, twist 1 block and currently being seen by cardiology, and pulmonary medicine, chest x-ray shows right pleural effusion, IV heparin started until any further and further intervention from pulmonary medicine, might need thoracentesis. Review of Systems Constitutional: Reports as per HPI, Denies anorexia, Denies chills, Denies chronic headaches, Denies chronic pain, Denies daytime sleepiness, Denies fatigue, Denies fever, Denies lethargy, Denies malaise, Denies night sweats, Denies poor appetite, Denies sweats, Denies weakness, Denies weight gain, Denies weight loss Ears, nose, mouth and throat: Reports as per HPI, Denies ant. neck pain, Denies bleeding gums, Denies dental pain, Denies dysphagia, Denies epistaxis, Denies headache, Denies hoarseness, Denies mouth pain, Denies nasal congestion, Denies nasal discharge, Denies neck fullness/pressure, Denies neck lump, Denies nose pain, Denies odynophagia, Denies post-nasal drip, Denies sinus pain, Denies sinus pressure, Denies swelling in mouth, Denies swelling in throat, Denies sore throat, Denies vertigo, Denies voice changes Cardiovascular: Reports as per HPI, Reports decreased exercise tolerance, Reports dyspnea on exertion, Reports irregular heart beat, Reports leg edema, Reports rapid heart beat, Denies chest pain, Denies claudication, Denies edema, Denies high blood pressure, Denies lightheadedness, Denies orthopnea, Denies palpitations, Denies paroxysmal nocturnal dyspnea, Denies phlebitis, Denies shortness of breath, Denies syncope Respiratory: Reports as per HPI, Denies congestion, Denies cough, Denies cough with sputum, Denies dyspnea, Denies excessive sputum, Denies hemoptysis, Denies home oxygen, Denies pain, Denies pain on inspiration, Denies pleurisy, Denies respiratory infections, Denies sleep apnea, Denies snoring, Denies wheezing Gastrointestinal: Reports as per HPI, Denies abdominal pain, Denies belching, Denies bloating, Denies BRBPR, Denies change in bowel habits, Denies coffee ground emesis, Denies constipation, Denies diarrhea, Denies dyspepsia, Denies early satiety, Denies excessive gas, Denies heartburn, Denies hematemesis, Denies hematochezia, Denies indigestion, Denies jaundice, Denies lactose intolerance, Denies loss of appetite, Denies melena, Denies nausea, Denies vomiting Genitourinary: Reports as per HPI, Denies decreased libido, Denies difficulties fathering child, Denies discharge, Denies dysuria, Denies erectile dysfunction, Denies flank pain, Denies genital pain, Denies genital sores, Denies hematuria, Denies impotence, Denies incontinence, Denies kidney stones, Denies nocturia, Denies polyuria, Denies testicular lump, Denies testicular pain, Denies urinary frequency, Denies urinary hesitancy, Denies urinary retention Musculoskeletal: Reports as per HPI, Denies arm numbness/tingling, Denies atrophy, Denies fractures, Denies frequent falls, Denies gait dysfunction, Denies hot joints, Denies leg numbness/tingling, Denies limitation of motion, Denies loss of height, Denies low back pain, Denies morning stiffness, Denies muscle cramps, Denies muscle weakness, Denies myalgias, Denies neck pain, Denies neck stiffness, Denies prior amputations, Denies redness of joints, Denies shooting arm pain, Denies shooting leg pain Integumentary: Reports as per HPI, Denies acne, Denies boils, Denies brittle nails, Denies change in hair/nails, Denies color changes, Denies darkening of skin, Denies depigmentation, Denies dryness, Denies foot/leg ulcers, Denies growths, Denies hirsutism, Denies lesions, Denies onychomycosis, Denies pruritus , Denies rash, Denies sores, Denies striae, Denies unusual bruising, Denies wounds Neurological: Reports as per HPI, Denies aphasia, Denies ataxia, Denies balance difficulties, Denies burning pain, Denies change in mentation, Denies change in smell/taste, Denies change in speech, Denies confusion, Denies convulsions, Denies double vision, Denies gait dysfunction, Denies head injury, Denies headaches, Denies hearing difficulties, Denies lack of coordination, Denies loss of vision, Denies memory loss, Denies migraines, Denies motor disturbance, Denies numbness, Denies paralysis, Denies paresthesias, Denies seizures, Denies sensory deficit, Denies spasticity, Denies syncope, Denies tic, Denies tingling , Denies transient paralysis, Denies tremors, Denies vertigo, Denies weakness, Denies visual changes Psychiatric: Reports as per HPI, Denies anhedonia, Denies anxiety, Denies anxiety attacks, Denies change in appetite, Denies change in libido, Denies change in sleep habits, Denies confusion, Denies depression, Denies difficulty concentrating, Denies disorientation, Denies hallucinations, Denies hopelessness , Denies hypersomnia, Denies insomnia, Denies irritability, Denies memory loss, Denies mood swings, Denies paranoia, Denies sadness/tearfulness, Denies sleep disturbances, Denies suicidal ideation Endocrine: Reports as per HPI Hematologic/Lymphatic: Reports as per HPI Allergic/Immunologic: Reports as per HPI, Denies allergic rhinitis, Denies anaphylaxis, Denies angioedema, Denies gluten intolerance, Denies persistent infections, Denies seasonal allergies, Denies urticaria, Denies wheezing Past Medical History Past Medical History: Heart Failure, Hypertension History of Any Multi-Drug Resistant Organisms: None Reported Past Surgical History: Adenoidectomy, Tonsillectomy Past Psychological History: No Psychological Hx Reported Smoking Status: Former smoker Past Alcohol Use History: Daily Past Drug Use History: None Reported Medications and Allergies Home Medications Medication Instructions Recorded Confirmed Type Aspirin [Adult Low Dose Aspirin EC] 81 mg PO DAILY 02/20/18 02/28/18 History Rosuvastatin Calcium [Crestor] 10 mg PO DAILY 02/20/18 02/28/18 History glipiZIDE XL [Glucotrol XL] 5 mg PO DAILY 02/20/18 02/28/18 History Furosemide [Lasix] 40 mg PO BID@0900,1600 #60 tab 03/01/18 Rx Levothyroxine Sodium [Synthroid] 50 mcg PO DAILY@0630 #30 tab 03/01/18 Rx Nebivolol [Bystolic] 10 mg PO HS #0 03/01/18 02/28/18 Rx Allergies Allergy/AdvReac Type Severity Reaction Status Date / Time No Known Allergies Allergy Verified 02/28/18 10:04 Physical Exam Vitals: Vital Signs Temp Pulse Pulse Resp BP BP Pulse Ox 03/01/18 08:00 98 F 67 16 110/69 97 03/01/18 04:00 98.0 F 58 L 18 129/81 97 03/01/18 00:00 97.6 F 70 18 124/67 95 02/28/18 22:26 96 02/28/18 20:00 97.9 F 108 H 18 118/69 95 02/28/18 12:13 97.5 F L 149 H 18 123/80 95 02/28/18 10:50 149 H 18 144/108 97 02/28/18 09:29 98 F 150 H 20 149/96 97 Intake and Output 02/28/18 03/01/18 03/01/18 22:59 06:59 14:59 Intake Total 782.666 582.281 360 Balance 782.666 582.281 360 Intake: IV 240 0.9 160 Heparin Sod,Pork in 0.45% 80 NaCl 25,000 unit In 0.45 % NaCl 1 500ml.bag @ 10. 914 UNITS/KG/HR 20 mls/hr IV .Q24H [facility] Rx#: [id number] Intake, IV Titration 302.666 342.281 Amount Diltiazem 50 mg In Sodium 78.333 47.25 Chloride 0.9% 40 ml @ 10 MG/HR 10 mls/hr IV .Q5H [facility] Rx#:[id number] Diltiazem 50 mg In Sodium 120 Chloride 0.9% 40 ml @ 5 MG/HR 5 mls/hr IV .Q10H [facility] Rx#:[id number] Heparin Sod,Pork in 0.45% 224.333 175.031 NaCl 25,000 unit In 0.45 % NaCl 1 500ml.bag @ 10. 914 UNITS/KG/HR 20 mls/hr IV .Q24H [facility] Rx#: [id number] Oral 480 360 Other: Voiding Method Toilet Toilet # Voids 2 Weight 92 kg - Constitutional General appearance: cooperative, no acute distress - EENT Eyes: anicteric sclerae, EOMI, dentition normal ENT: NA/AT, normal oropharynx - Respiratory Respiratory: bilateral: CTA, negative: diminished, dullness, rales, rhonchi, wheezing, prolonged expiration, prolonged inspiration - Cardiovascular Rhythm: regular (Heart rate 51) Abnormal Heart Sounds: systolic murmur, diastolic murmur - Gastrointestinal General gastrointestinal: normal bowel sounds, soft - Integumentary Integumentary: decreased turgor, normal - Neurologic Neurologic: CNII-XII intact - Musculoskeletal Musculoskeletal: gait normal, strength equal bilaterally - Psychiatric Psychiatric: A&O x's 3, appropriate affect, intact judgment & insight Results CBC & Chem 7: 03/01/18 10:36 03/01/18 10:36 Labs: Abnormal Lab Results - Last 24 Hours (Table) 02/28/18 02/28/18 02/28/18 Range/Units 09:41 09:41 09:41 INR 1.2 H (<1.2) APTT (22.0-30.0) sec Potassium 5.3 H (3.5-5.1) mmol/L Carbon Dioxide 20 L (22-30) mmol/L Glucose 193 H (74-99) mg/dL POC Glucose (mg/dL) (75-99) mg/dL CK-MB (CK-2) 2.6 H* (0.0-2.4) ng/mL TSH 4.910 H (0.465-4.680) mIU/L 02/28/18 02/28/18 02/28/18 Range/Units 16:34 20:41 21:31 INR (<1.2) APTT 33.0 H (22.0-30.0) sec Potassium (3.5-5.1) mmol/L Carbon Dioxide (22-30) mmol/L Glucose (74-99) mg/dL POC Glucose (mg/dL) 131 H 177 H (75-99) mg/dL CK-MB (CK-2) (0.0-2.4) ng/mL TSH (0.465-4.680) mIU/L 03/01/18 03/01/18 Range/Units 03:55 05:41 INR (<1.2) APTT 43.5 H (22.0-30.0) sec Potassium (3.5-5.1) mmol/L Carbon Dioxide (22-30) mmol/L Glucose (74-99) mg/dL POC Glucose (mg/dL) 134 H (75-99) mg/dL CK-MB (CK-2) (0.0-2.4) ng/mL TSH (0.465-4.680) mIU/L Laboratory Results WBC 7.1 k/uL (3.8-10.6) 03/01/18 10:36 RBC 4.79 m/uL (4.30-5.90) 03/01/18 10:36 Hgb 15.0 gm/dL (13.0-17.5) 03/01/18 10:36 Hct 45.5 % (39.0-53.0) 03/01/18 10:36 MCV 94.9 fL (80.0-100.0) 03/01/18 10:36 MCH 31.3 pg (25.0-35.0) 03/01/18 10:36 MCHC 32.9 g/dL (31.0-37.0) 03/01/18 10:36 RDW 14.4 % (11.5-15.5) 03/01/18 10:36 Plt Count 205 k/uL (150-450) 03/01/18 10:36 Neutrophils % 71 % 03/01/18 10:36 Lymphocytes % 18 % 03/01/18 10:36 Monocytes % 6 % 03/01/18 10:36 Eosinophils % 2 % 03/01/18 10:36 Basophils % 1 % 03/01/18 10:36 Neutrophils # 5.1 k/uL (1.3-7.7) 03/01/18 10:36 Lymphocytes # 1.3 k/uL (1.0-4.8) 03/01/18 10:36 Monocytes # 0.4 k/uL (0-1.0) 03/01/18 10:36 Eosinophils # 0.1 k/uL (0-0.7) 03/01/18 10:36 Basophils # 0.1 k/uL (0-0.2) 03/01/18 10:36 PT 11.1 sec (9.0-12.0) 02/28/18 09:41 INR 1.2 (<1.2) H 02/28/18 09:41 APTT 52.9 sec (22.0-30.0) H 03/01/18 10:36 Sodium 140 mmol/L (137-145) 03/01/18 10:36 Potassium 4.2 mmol/L (3.5-5.1) 03/01/18 10:36 Chloride 101 mmol/L (98-107) 03/01/18 10:36 Carbon Dioxide 29 mmol/L (22-30) 03/01/18 10:36 Anion Gap 10 mmol/L 03/01/18 10:36 BUN 26 mg/dL (9-20) H 03/01/18 10:36 Creatinine 1.18 mg/dL (0.66-1.25) 03/01/18 10:36 Est GFR (CKD-EPI)AfAm 76 (>60 ml/min/1.73 sqM) 03/01/18 10:36 Est GFR (CKD-EPI)NonAf 65 (>60 ml/min/1.73 sqM) 03/01/18 10:36 Glucose 183 mg/dL (74-99) H 03/01/18 10:36 POC Glucose (mg/dL) 153 mg/dL (75-99) H 03/01/18 11:59 POC Glu [employer] STONE Carmen Tenorio 03/01/18 11:59 Calcium 8.8 mg/dL (8.4-10.2) 03/01/18 10:36 Magnesium 2.0 mg/dL (1.6-2.3) 02/28/18 09:41 Total Bilirubin 0.7 mg/dL (0.2-1.3) 02/28/18 09:41 AST 45 U/L (17-59) 02/28/18 09:41 ALT 67 U/L (21-72) 02/28/18 09:41 Alkaline Phosphatase 57 U/L (38-126) 02/28/18 09:41 Total Creatine Kinase 160 U/L (55-170) 02/28/18 09:41 CK-MB (CK-2) 2.6 ng/mL (0.0-2.4) H* 02/28/18 09:41 CK-MB (CK-2) Rel Index 1.6 02/28/18 09:41 Troponin I <0.012 ng/mL (0.000-0.034) 03/01/18 00:16 NT-Pro-B Natriuret Pep 2070 pg/mL 02/28/18 09:41 Total Protein 6.6 g/dL (6.3-8.2) 02/28/18 09:41 Albumin 4.0 g/dL (3.5-5.0) 02/28/18 09:41 TSH 4.910 mIU/L (0.465-4.680) H 02/28/18 09:41 Free T3 pg/mL 3.4 pg/ml (2.8-5.3) 02/28/18 09:41 Thrombosis Risk Factor Assmnt - DVT/VTE Prophylaxis DVT/VTE Prophylaxis: Pharmacologic Prophylaxis ordered - Choose All That Apply Each Factor Represents 1 point: Age 41-60 years, Swollen legs (current) Thrombosis Risk Factor Assessment Total Risk Factor Score: 2 Thrombosis Risk Factor Assessment Level: Low Risk Assessment and Plan Plan: 1. Atrial flutter with rapid ventricle rate, to use one block, concerning regarding a prolonged pause intermittently, patient was seen by cardiology, had an echocardiogram , IV Cardizem, IV heparin, chads 2vasc score is 3 based on diabetes mellitus and hypertension and CHF, patient was counseled regarding risk factors and triggers, and is mainly advised to abstain both from caffeine and alcohol. Patient will be transitioned to oral anticoagulation after pulmonary has decided whether to proceed with thoracentesis or not, workup is currently pending continue on bystolic adjusted to 10 mg at bedtime 2. Right pleural effusion recurrent, pulmonary is on consult Dr. Cota, chest x- rays ordered I need intervention for thoracentesis, IV heparin for now 3. Diabetes mellitus type 2 on Glucotrol 5 mg daily, Accu-Cheks along with NovoLog correctional scale 4. Hypothyroidism, recently placed on Synthroid 3 months ago, TSH slightly elevated, we'll going to just this to 50 g daily from a previous dose of 25 g T3 is normal 5. Dependent edema, patient started on IV Lasix for cardiac gram pending 6. Hyperlipidemia on Crestor 10 mg daily 7. DVT prophylaxis, will require long-term anticoagulation in this discharge and to a flutt ER prophylaxis IV Pepcid 8.
[2018-03-01 17:03] LABS: Glucose,Whole Blood 143 mg/dL (75-99)
--- NOTE | 2018-03-01 17:08 | ECHOF ---
Referral Reason:Atrial flutter MEASUREMENTS -------- HEIGHT: 172.7 cm WEIGHT: 91.6 kg BP: 144/108 RVIDd: 2.8 cm (< 3.3) IVSd: 1.6 cm (0.6 - 1.1) LVIDd: 3.2 cm (3.9 - 5.3) LVPWd: 1.4 cm (0.6 - 1.1) IVSs: 1.9 cm LVIDs: 3.0 cm LVPWs: 1.6 cm LA Diam: 4.2 cm (2.7 - 3.8) LAESV Index (A-L): 23.80 ml/m Ao Diam: 3.3 cm (2.0 - 3.7) AV Cusp: 1.9 cm (1.5 - 2.6) MV EXCURSION: 18.872 mm (> 18.000) MV EF SLOPE: 255 mm/s (70 - 150) EPSS: 0.7 cm RAP: 5.00 mmHg RVSP: 29.26 mmHg FINDINGS -------- The rhythm appears to be atrial flutter. This was a technically adequate study. The left ventricular size is normal. There is moderate concentric left ventricular hypertrophy. O verall left ventricular systolic function is severely impaired with, an EF between 25 - 30 %. The right ventricle is normal in size. The left atrium is mildly dilated. The right atrium is normal in size. There is mild aortic valve sclerosis. The mitral valve leaflets are mildly thickened. Mild mitral annular calcification present. Mild m itral regurgitation is present. Mild tricuspid regurgitation present. Right ventricular systolic pressure is normal at < 35 mmHg. Trace/mild (physiologic) pulmonic regurgitation. The aortic root size is normal. Normal inferior vena cava with normal inspiratory collapse consistent with estimated right atrial pre ssure of 5 mmHg. The inferior vena cava is mildly dilated. There is no pericardial effusion. CONCLUSIONS -------- 1. The rhythm appears to be atrial flutter. 2. This was a technically adequate study. 3. The left ventricular size is normal. 4. There is moderate concentric left ventricular hypertrophy. 5. Overall left ventricular systolic function is severely impaired with, an EF between 25 - 30 %. 6. The right ventricle is normal in size. 7. The left atrium is mildly dilated. 8. The right atrium is normal in size. 9. There is mild aortic valve sclerosis. 10. The mitral valve leaflets are mildly thickened. 11. Mild mitral annular calcification present. 12. Mild mitral regurgitation is present. 13. Mild tricuspid regurgitation present. 14. Right ventricular systolic pressure is normal at < 35 mmHg. 15. Trace/mild (physiologic) pulmonic regurgitation. 16. The aortic root size is normal. 17. Normal inferior vena cava with normal inspiratory collapse consistent with estimated right atrial pressure of 5 mmHg. 18. The inferior vena cava is mildly dilated. 19. There is no pericardial effusion. QUALITY CONSULTANT: Radha Hanson RDCS
[2018-03-01 17:31] LABS: Creatine Kinase MB 1.3 ng/mL (0.0-2.4)
[2018-03-01 20:54] LABS: Glucose,Whole Blood 220 mg/dL (75-99)
[2018-03-01] MEDS ORDERED: NEBIVOLOL 5 MG TAB PO SCH (21:00)
[2018-03-01] MEDS: POTASSIUM CHLORIDE ER 10 MEQ TAB.ER.PRT PO SCH (21:22)
[2018-03-01 21:57] LABS: Creatine Kinase 90 U/L (55-170)
[2018-03-01 22:10] LABS: Creatine Kinase MB 1.3 ng/mL (0.0-2.4); Troponin I <0.012 ng/mL (0.000-0.034)
[2018-03-02 06:32] LABS: Glucose,Whole Blood 123 mg/dL (75-99)
[2018-03-02 06:34] LABS: Basophils # (A) 0.1 k/uL (0-0.2); Basophils % (A) 1 %; Eosinophils # (A) 0.1 k/uL (0-0.7); Eosinophils % (A) 2 %; HCT 44.8 % (39.0-53.0); HGB 14.6 gm/dL (13.0-17.5); Lymphocytes # (A) 1.6 k/uL (1.0-4.8); Lymphocytes % (A) 23 %; MCH 31.1 pg (25.0-35.0); MCHC 32.7 g/dL (31.0-37.0); MCV 95.2 fL (80.0-100.0); Mean Platelet Volume 7.1; Monocytes # (A) 0.4 k/uL (0-1.0); Monocytes % (A) 6 %; Neutrophils # (A) 4.5 k/uL (1.3-7.7); Neutrophils % (A) 66 %; Platelet Count 194 k/uL (150-450); RDW 14.2 % (11.5-15.5); WBC 6.9 k/uL (3.8-10.6)
[2018-03-02] MEDS: INSULIN ASPART 100 UNIT/ML 1 ML 10 ML VIAL SQ SCH ×4 (06:34→21:22)
[2018-03-02] MEDS: LEVOTHYROXINE 50 MCG TAB PO SCH (06:34)
[2018-03-02 06:59] LABS: Albumin 3.5 g/dL (3.5-5.0); Calcium 8.4 mg/dL (8.4-10.2); Potassium 3.9 mmol/L (3.5-5.1); Total Bilirubin 0.8 mg/dL (0.2-1.3); Total Protein 5.8 g/dL (6.3-8.2)
[2018-03-02] MEDS: FUROSEMIDE 40 MG TAB PO SCH ×2 (09:24→09:26)
[2018-03-02] MEDS: ATORVASTATIN 20 MG TAB PO SCH (09:24)
[2018-03-02] MEDS: POTASSIUM CHLORIDE ER 10 MEQ TAB.ER.PRT PO SCH ×2 (09:27→20:49)
[2018-03-02] MEDS: LOSARTAN 25 MG TAB PO SCH (09:30)
[2018-03-02] MEDS: SPIRONOLACTONE 25 MG TAB PO SCH (09:30)
[2018-03-02] MEDS: CARVEDILOL 3.125 MG TAB PO SCH ×2 (09:30→16:36)
[2018-03-02 10:30] VITALS: BMI 30.7
[2018-03-02 11:53] LABS: Glucose,Whole Blood 158 mg/dL (75-99)
--- NOTE | 2018-03-02 12:00 | P.PN ---
Subjective Progress Note Date: 03/02/18 This is a pleasant 61-year-old gentleman with a past medical history significant for diabetes, hypertension, and dyslipidemia, was sent directly from Dr. Cuevas to the hospital after he was found to be tachycardic. The patient was directly referred to the emergency room. He was found to be in atrial flutter with RVR. Subsequently he was started on Cardizem drip and converted to normal sinus mechanism. No prior history of atrial flutter or cardiac arrhythmia. No history of coronary artery disease or congestive heart failure in the past. 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 No dizziness or lightheadedness, syncope, feeling of heart racing or fluttering.The patient converted to normal sinus mechanism and he has been maintaining normal sinus mechanism. Please note that the patient does drink about 6 packs of beer every day. He also does have history of sleep apnea and uses a CPAP machine. An echocardiogram with Doppler study was performed which revealed an ejection fraction of 25-30%. A shunt also had an ultrasound of the chest with markings for possible thoracentesis, right pleural effusion measuring 9.3 cm. Overall the patient states he feels well, he has some mild shortness of breath, he also has about 1+ peripheral edema. Objective - Vital Signs Vital signs: Vital Signs Temp 96.4 F L 03/02/18 08:00 Pulse 64 03/02/18 08:00 Resp 16 03/02/18 11:37 BP 136/65 03/02/18 08:00 Pulse Ox 97 03/02/18 08:00 Intake & Output 03/01/18 03/02/18 03/02/18 18:59 06:59 18:59 Intake Total 1080 580 618.824 Output Total 375 Balance 1080 580 243.824 Weight 91.7 kg 91.7 kg Intake: IV 100 0.9 100 Intake, IV Titration 438.824 Amount Heparin Sod,Pork in 0.45% 438.824 NaCl 25,000 unit In 0.45 % NaCl 1 500ml.bag @ 10. 914 UNITS/KG/HR 20 mls/hr IV .Q24H [facility] Rx#: [id number] Oral 1080 480 180 Output: Urine 375 Other: Voiding Method Toilet Toilet Toilet # Voids 2 - Exam PHYSICAL EXAMINATION: GENERAL: 62-year-old gentleman in no acute distress at the time of my examination HEENT: Head is atraumatic, normocephalic. Pupils equal, round. Sclera anicteric. Conjunctiva are clear. Mucous membranes of the mouth are moist. Neck is supple. There is elevated jugular venous pressure.] No carotid bruit is heard. HEART EXAMINATION: Heart S1, S2 normal. No murmur or gallop heard. CHEST EXAMINATION: Lungs reveal diminished air entry bilaterally, right greater than left. ABDOMEN: Soft, nontender. Bowel sounds are heard. No organomegaly noted. EXTREMITIES: 2+ peripheral pulses with 1+ evidence of peripheral edema and no calf tenderness noted. NEUROLOGIC patient is awake, alert and oriented OX3. . - Labs CBC & Chem 7: 03/02/18 05:57 03/02/18 05:57 Labs: Abnormal Lab Results - Last 24 Hours (Table) 03/01/18 03/01/18 03/01/18 Range/Units 11:59 16:37 20:52 APTT (22.0-30.0) sec BUN (9-20) mg/dL Glucose (74-99) mg/dL POC Glucose (mg/dL) 153 H 143 H 220 H (75-99) mg/dL Total Protein (6.3-8.2) g/dL 03/02/18 03/02/18 03/02/18 Range/Units 05:57 05:57 06:25 APTT 72.8 H (22.0-30.0) sec BUN 21 H (9-20) mg/dL Glucose 112 H (74-99) mg/dL POC Glucose (mg/dL) 123 H (75-99) mg/dL Total Protein 5.8 L (6.3-8.2) g/dL Assessment and Plan Plan: Assessment and plan #1 typical atrial flutter, paroxysmal, patient currently in normal sinus rhythm #2 diabetes #3 hypertension #4 alcohol abuse #5 obstructive sleep apnea #6 right sided pleural effusion #7 cardiomyopathy, exact etiology undetermined, could be secondary to EtOH Plan We will discontinue the by systolic and start the patient on Coreg, add losartan to his medication regime along with Aldactone. Continue twice a day Lasix. Patient will likely undergo thoracentesis today, after this is performed we will need to start the patient on oral anticoagulation for stroke prevention. DNP note has been reviewed, I agree with a documented findings and plan of care. Patient was seen and examined.
--- NOTE | 2018-03-02 14:03 | P.PN ---
Subjective Progress Note Date: 03/02/18 This is a 62-year-old gentleman patient of Dr. Montana, Dr. Cuevas. He has underlying history of diabetes mellitus with complications, hypothyroidism and noncompliance medications as patient doesn't want to take too many pain meds, and hyperlipidemia hypertension. He also has pleural effusion being managed by Dr. Cuevas, on his routine visit yesterday for pulmonary check, Dr. Abbott noticed that his heart rate was spitting up, and was found to have to his to one block of atrial flutter. He was subsequently admitted to emergency room. Surprisingly patient does not feel any of these palpitations, he also drinks 6 packs of beer daily, and 1/2 cup of coffee per day, he currently is on beviblock by his PCP. Patient denies any palpitations and lightheadedness chest pain however he does have chronic dependent edema, no diuretics even though he was seen at urgent care In the emergency room, EKG shows atrial flutter heart rate 150, twist 1 block and currently being seen by cardiology, and pulmonary medicine, chest x-ray shows right pleural effusion, IV heparin started until any further and further intervention from pulmonary medicine, might need thoracentesis. 03/02: Echocardiogram reveals EF of 25-30%, moderate concentric left ventricular hypertrophy, left atrium mildly dilated, mild aortic valve sclerosis, mild mitral regurgitation, mild tricuspid regurgitation, estimated right atrial pressure of 5 mmHg. Cardiology is admitted and aspirin, Coreg, losartan and spironolactone. Lasix is currently at twice daily. After thoracentesis, patient is to be started on oral anticoagulation. Ultrasound of the chest shows right pleural effusion fluid pocket 9.3 cm. Patient is ambulating in the hallway. He denies any shortness of breath. He is currently off the Cardizem drip and remains on heparin drip. TSH was 4.910 and levothyroxine increased to 50 g. Patient understands importance of no alcohol and exercise following discharge. Objective - Vital Signs Vital signs: Vital Signs Temp 98.0 F 03/02/18 04:00 Pulse 62 03/02/18 04:00 Resp 17 03/02/18 04:00 BP 129/76 03/02/18 04:00 Pulse Ox 96 03/02/18 04:00 Intake & Output 03/01/18 03/02/18 03/02/18 18:59 06:59 18:59 Intake Total 1080 580 438.824 Balance 1080 580 438.824 Weight 91.7 kg Intake: IV 100 0.9 100 Intake, IV Titration 438.824 Amount Heparin Sod,Pork in 0.45% 438.824 NaCl 25,000 unit In 0.45 % NaCl 1 500ml.bag @ 10. 914 UNITS/KG/HR 20 mls/hr IV .Q24H [facility] Rx#: [id number] Oral 1080 480 Other: Voiding Method Toilet Toilet # Voids 2 - Exam General appearance: cooperative, no acute distress - EENT Eyes: anicteric sclerae, EOMI, dentition normal ENT: NA/AT, normal oropharynx - Respiratory Respiratory: bilateral: CTA, negative: diminished, dullness, rales, rhonchi, wheezing, prolonged expiration, prolonged inspiration - Cardiovascular Rhythm: regular Abnormal Heart Sounds: systolic murmur, diastolic murmur - Gastrointestinal General gastrointestinal: normal bowel sounds, soft - Integumentary Integumentary: decreased turgor, normal - Neurologic Neurologic: CNII-XII intact - Musculoskeletal Musculoskeletal: gait normal, strength equal bilaterally - Psychiatric Psychiatric: A&O x's 3, appropriate affect, intact judgment & insight - Labs CBC & Chem 7: 03/02/18 05:57 03/02/18 05:57 Labs: Abnormal Lab Results - Last 24 Hours (Table) 03/01/18 03/01/18 03/01/18 Range/Units 10:36 10:36 11:59 APTT 52.9 H (22.0-30.0) sec BUN 26 H (9-20) mg/dL Glucose 183 H (74-99) mg/dL POC Glucose (mg/dL) 153 H (75-99) mg/dL Total Protein (6.3-8.2) g/dL 03/01/18 03/01/18 03/02/18 Range/Units 16:37 20:52 05:57 APTT 72.8 H (22.0-30.0) sec BUN (9-20) mg/dL Glucose (74-99) mg/dL POC Glucose (mg/dL) 143 H 220 H (75-99) mg/dL Total Protein (6.3-8.2) g/dL 03/02/18 03/02/18 Range/Units 05:57 06:25 APTT (22.0-30.0) sec BUN 21 H (9-20) mg/dL Glucose 112 H (74-99) mg/dL POC Glucose (mg/dL) 123 H (75-99) mg/dL Total Protein 5.8 L (6.3-8.2) g/dL Assessment and Plan Plan: 1. Atrial flutter with rapid ventricle rate, paroxysmal, converted to sinus rhythm. Cardiology consult appreciated. IV Cardizem discontinued and Coreg added. Also losartan, spironolactone and aspirin ordered. Heparin drip remains in place and patient to start oral anticoagulation once thoracentesis is completed. 2. Cardiomyopathy most likely secondary to alcohol abuse. Continue as in #1. Patient understands importance of alcohol cessation. 3. Right pleural effusion recurrent, pulmonary is on consult Dr. Cota, thoracentesis, IV heparin for now 4. Diabetes mellitus type 2 on Glucotrol 5 mg daily, Accu-Cheks along with NovoLog correctional scale 5. Hypothyroidism, recently placed on Synthroid 3 months ago, TSH slightly elevated, we'll going to just this to 50 g daily from a previous dose of 25 g T3 is normal 6. Dependent edema, patient started on IV Lasix 7. Hyperlipidemia on Crestor 10 mg daily 8. DVT prophylaxis, will require long-term anticoagulation 9. GI prophylaxis Pepcid Discharge plan: Return home Impression and plan of care have been directed as dictated by the signing physician. Vijaya Dee nurse practitioner acting as scribe for signing physician.
--- NOTE | 2018-03-02 14:17 | P.PN ---
Subjective Progress Note Date: 03/02/18 Principal diagnosis: Atrial fibrillation with rapid ventricular response. Cardiomyopathy. 62-year-old male who was apparently sent over the from my office to the emergency room. He was in my office and one of my partners for a right-sided pleural effusion. The pleural effusion apparently was noted on a previous admission and a chest x-ray done in the past. A chest x-ray was within my office. Unfortunately, because of the patient's atrial fibrillation/flutter in his rapid ventricular response, the patient was immediately sent to the emergency room where he was evaluated and admitted. He did not have a chest x- ray here and I asked the primary service to order chest x-ray. He is not currently having any shortness of breath. He was restarted on appropriate medications including blood thinners. Pending the results of the chest x-ray, he may or may not need an ultrasound of the chest. He may or may not benefit from thoracentesis pending the result of that. The patient does have a history of heart failure and hypertension as well as hyperlipidemia and hypothyroidism. The patient is a former smoker. The patient was seen again today 03/02/2018 in follow-up on the selective care unit. He is awake and alert in no acute distress. He denies any worsening shortness of breath, cough or congestion. Maintaining good O2 saturations in the 90s on room air. His rate is better controlled. He's been hemodynamically stable. White count 6.9, hemoglobin 14.6, creatinine 1.10. His chest x-ray shows minimal right-sided pleural effusion. Ultrasound of the chest showed more significant fluid but within pockets no significant free-flowing fluid,not enough for thoracentesis. Objective - Vital Signs Vital signs: Vital Signs Temp 96.4 F L 03/02/18 08:00 Pulse 69 03/02/18 12:00 Resp 16 03/02/18 12:00 BP 130/73 03/02/18 12:00 Pulse Ox 96 03/02/18 12:00 Intake & Output 03/01/18 03/02/18 03/02/18 18:59 06:59 18:59 Intake Total 1080 580 618.824 Output Total 375 Balance 1080 580 243.824 Weight 91.7 kg 91.7 kg Intake: IV 100 0.9 100 Intake, IV Titration 438.824 Amount Heparin Sod,Pork in 0.45% 438.824 NaCl 25,000 unit In 0.45 % NaCl 1 500ml.bag @ 10. 914 UNITS/KG/HR 20 mls/hr IV .Q24H [facility] Rx#: [id number] Oral 1080 480 180 Output: Urine 375 Other: Voiding Method Toilet Toilet Toilet # Voids 2 - Exam No acute distress, oriented 3. HEENT examination is grossly unremarkable. Mucous membranes are moist. No oral lesions. Neck supple. Full range of motion. No adenopathy thyromegaly or neck vein distention. Cardiovascular examination reveals regular rhythm rate. S1-S2 normal. No S3 or S4. No discernible murmur noted. Lungs reveal mostly clear breath sounds. No wheezes or rhonchi. Minimal basilar crackles. Abdomen soft bowel sounds are heard. No masses or tenderness. Extremities reveal significant lower extremity pitting edema. Is likely 1-2+. Skin is without rash or lesion. Neurologic examination is brief but nonfocal. - Labs CBC & Chem 7: 03/02/18 05:57 03/02/18 05:57 Labs: Abnormal Lab Results - Last 24 Hours (Table) 03/01/18 03/01/18 03/02/18 Range/Units 16:37 20:52 05:57 APTT 72.8 H (22.0-30.0) sec BUN (9-20) mg/dL Glucose (74-99) mg/dL POC Glucose (mg/dL) 143 H 220 H (75-99) mg/dL Total Protein (6.3-8.2) g/dL 03/02/18 03/02/18 03/02/18 Range/Units 05:57 06:25 11:51 APTT (22.0-30.0) sec BUN 21 H (9-20) mg/dL Glucose 112 H (74-99) mg/dL POC Glucose (mg/dL) 123 H 158 H (75-99) mg/dL Total Protein 5.8 L (6.3-8.2) g/dL Assessment and Plan Assessment: Assessment Atrial flutter with a rapid ventricular response Myopathy with ejection fraction 25-30%. History of alcohol abuse Right-sided pleural effusion not significant enough for thoracentesis History of hypertension History of hyperlipidemia History of hypothyroidism Previous history of tobacco use. Plan: The patient was seen and evaluated by Dr. Cota. The chest x-ray showed very minimal fluid. He spoke with the radiologist regarding the ultrasound which showed pockets of fluid but no significant free-flowing fluid. No plans for thoracentesis at this time. He remains on heparin drip and will be converted to oral anticoagulant per cardiology. We will continue to follow and make further recommendations based on his clinical status. I, the cosigning physician, performed a history & physical examination of the patient. Lungs sounds diminished right lung base. Maintaining good O2 saturations in the 90s on room air. I discussed the assessment and plan of care with my nurse practitioner, Sloane Rivero. I attest to the above note as dictated by her.
[2018-03-02 16:45] LABS: Glucose,Whole Blood 127 mg/dL (75-99)
[2018-03-02] MEDS: ASPIRIN 325 MG TAB PO SCH (20:58)
[2018-03-02] MEDS: HEPARIN SOD,PORK IN 0.45% NACL 25,000 UNIT in 0.45% NACL 1 500ML.BAG IV SCH (20:58)
[2018-03-02 21:03] LABS: Glucose,Whole Blood 127 mg/dL (75-99)
[2018-03-03] MEDS ORDERED: DILTIAZEM 50 MG in SODIUM CHLORIDE 0.9% 40 ML IV SCH (04:00)
[2018-03-03 06:01] LABS: Basophils # (A) 0.1 k/uL (0-0.2); Basophils % (A) 1 %; Eosinophils # (A) 0.1 k/uL (0-0.7); Eosinophils % (A) 2 %; HCT 46.6 % (39.0-53.0); HGB 15.2 gm/dL (13.0-17.5); Lymphocytes # (A) 1.6 k/uL (1.0-4.8); Lymphocytes % (A) 23 %; MCH 30.5 pg (25.0-35.0); MCHC 32.6 g/dL (31.0-37.0); MCV 93.6 fL (80.0-100.0); Mean Platelet Volume 7.3; Monocytes # (A) 0.4 k/uL (0-1.0); Monocytes % (A) 6 %; Neutrophils # (A) 4.9 k/uL (1.3-7.7); Neutrophils % (A) 67 %; Platelet Count 218 k/uL (150-450); RBC 4.98 m/uL (4.30-5.90); RDW 13.7 % (11.5-15.5); WBC 7.3 k/uL (3.8-10.6)
[2018-03-03] MEDS: CARVEDILOL 3.125 MG TAB PO SCH (06:06)
[2018-03-03] MEDS: LEVOTHYROXINE 50 MCG TAB PO SCH (06:06)
[2018-03-03 06:10] LABS: Glucose,Whole Blood 121 mg/dL (75-99)
[2018-03-03] MEDS: INSULIN ASPART 100 UNIT/ML 1 ML 10 ML VIAL SQ SCH ×4 (06:10→21:45)
[2018-03-03] MEDS: HEPARIN SOD,PORK IN 0.45% NACL 25,000 UNIT in 0.45% NACL 1 500ML.BAG IV SCH (06:11)
[2018-03-03] MEDS: FUROSEMIDE 40 MG TAB PO SCH ×2 (08:37→15:35)
[2018-03-03] MEDS: SPIRONOLACTONE 25 MG TAB PO SCH (08:37)
[2018-03-03] MEDS: METOPROLOL TARTRATE 50 MG TAB PO SCH (08:37)
[2018-03-03] MEDS: LOSARTAN 25 MG TAB PO SCH (08:37)
[2018-03-03] MEDS: ATORVASTATIN 20 MG TAB PO SCH (08:37)
[2018-03-03] MEDS: ASPIRIN 81 MG PO SCH (08:37)
[2018-03-03] MEDS: POTASSIUM CHLORIDE ER 10 MEQ TAB.ER.PRT PO SCH ×2 (08:37→19:57)
[2018-03-03] MEDS: APIXABAN 5 MG TAB PO SCH ×2 (08:56→19:56)
[2018-03-03] MEDS ORDERED: LORazepam 2 MG/ML INJ IV PRN ×3 (09:07)
[2018-03-03] MEDS ORDERED: THIAMINE 100 MG/ML 2 ML VIAL IM STA (09:07)
--- NOTE | 2018-03-03 09:12 | P.PN ---
Subjective Progress Note Date: 03/03/18 This is a 62-year-old gentleman patient of Dr. [place], Dr. Cuevas. He has underlying history of diabetes mellitus with complications, hypothyroidism and noncompliance medications as patient doesn't want to take too many pain meds, and hyperlipidemia hypertension. He also has pleural effusion being managed by Dr. Cuevas, on his routine visit yesterday for pulmonary check, Dr. Abbott noticed that his heart rate was spitting up, and was found to have to his to one block of atrial flutter. He was subsequently admitted to emergency room. Surprisingly patient does not feel any of these palpitations, he also drinks 6 packs of beer daily, and 1/2 cup of coffee per day, he currently is on beviblock by his PCP. Patient denies any palpitations and lightheadedness chest pain however he does have chronic dependent edema, no diuretics even though he was seen at urgent care In the emergency room, EKG shows atrial flutter heart rate 150, twist 1 block and currently being seen by cardiology, and pulmonary medicine, chest x-ray shows right pleural effusion, IV heparin started until any further and further intervention from pulmonary medicine, might need thoracentesis. 03/02: Echocardiogram reveals EF of 25-30%, moderate concentric left ventricular hypertrophy, left atrium mildly dilated, mild aortic valve sclerosis, mild mitral regurgitation, mild tricuspid regurgitation, estimated right atrial pressure of 5 mmHg. Cardiology is admitted and aspirin, Coreg, losartan and spironolactone. Lasix is currently at twice daily. After thoracentesis, patient is to be started on oral anticoagulation. Ultrasound of the chest shows right pleural effusion fluid pocket 9.3 cm. Patient is ambulating in the hallway. He denies any shortness of breath. He is currently off the Cardizem drip and remains on heparin drip. TSH was 4.910 and levothyroxine increased to 50 g. Patient understands importance of no alcohol and exercise following discharge. 03/03: Dr. Cota has refused viewed films and there is no plan for thoracentesis. Patient was started on eliquis this morning. Last evening, patient states that a new patient who was very disruptive came into the room next to him and when he finally got to sleep he was dreaming extensively in his aid woke him up to take his vital signs and his heart rate was 165. Patient was back in atrial fibrillation. Heart rate is now running 130s. There is concern that this is due to alcohol withdrawal. Librium and CIWA protocol added. Discharge anticipated for the weekend. Objective - Vital Signs Vital signs: Vital Signs Temp 98.0 F 03/03/18 03:44 Pulse 131 H 03/03/18 04:00 Resp 18 03/03/18 04:00 BP 151/98 03/03/18 03:44 Pulse Ox 98 03/03/18 03:44 Intake & Output 03/02/18 03/03/18 03/03/18 18:59 06:59 18:59 Intake Total 1094.824 200 Output Total 375 Balance 719.824 200 Weight 91.7 kg 89.1 kg Intake: IV 160 0.9 160 Intake, IV Titration 438.824 40 Amount Diltiazem 50 mg In Sodium 40 Chloride 0.9% 40 ml @ 5 MG/HR 5 mls/hr IV .Q10H [facility] Rx#:[id number] Heparin Sod,Pork in 0.45% 438.824 NaCl 25,000 unit In 0.45 % NaCl 1 500ml.bag @ 10. 914 UNITS/KG/HR 20 mls/hr IV .Q24H [facility] Rx#: [id number] Oral 656 Output: Urine 375 Other: Voiding Method Toilet Toilet # Voids 1 - Exam General appearance: cooperative, no acute distress - EENT Eyes: anicteric sclerae, EOMI, dentition normal ENT: NA/AT, normal oropharynx - Respiratory Respiratory: bilateral: CTA, negative: diminished, dullness, rales, rhonchi, wheezing, prolonged expiration, prolonged inspiration - Cardiovascular Rhythm: Irregular Abnormal Heart Sounds: systolic murmur, diastolic murmur - Gastrointestinal General gastrointestinal: normal bowel sounds, soft - Integumentary Integumentary: decreased turgor, normal - Neurologic Neurologic: CNII-XII intact - Musculoskeletal Musculoskeletal: gait normal, strength equal bilaterally - Psychiatric Psychiatric: A&O x's 3, appropriate affect, intact judgment & insight - Labs CBC & Chem 7: 03/03/18 05:39 03/02/18 05:57 Labs: Abnormal Lab Results - Last 24 Hours (Table) 03/02/18 03/02/18 03/02/18 Range/Units 11:51 16:43 21:01 APTT (22.0-30.0) sec POC Glucose (mg/dL) 158 H 127 H 127 H (75-99) mg/dL 03/03/18 03/03/18 Range/Units 05:39 06:08 APTT 73.3 H (22.0-30.0) sec POC Glucose (mg/dL) 121 H (75-99) mg/dL Assessment and Plan Plan: 1. Atrial flutter with rapid ventricle rate, paroxysmal, converted to sinus rhythm. Cardiology consult appreciated. IV Cardizem discontinued and Coreg added. Also losartan, spironolactone and aspirin ordered. Heparin drip discontinued and patient started on eliquis. 2. Cardiomyopathy most likely secondary to alcohol abuse. Continue as in #1. Patient understands importance of alcohol cessation. 3. Right pleural effusion recurrent, pulmonary is on consult Dr. Cota, no thoracentesis. 4. Diabetes mellitus type 2 on Glucotrol 5 mg daily, Accu-Cheks along with NovoLog correctional scale 5. Hypothyroidism, recently placed on Synthroid 3 months ago, TSH slightly elevated, we'll going to just this to 50 g daily from a previous dose of 25 g T3 is normal 6. Dependent edema, oral Lasix 7. Hyperlipidemia on Crestor 10 mg daily changed to atorvastatin 8. DVT prophylaxis, will require long-term anticoagulation 9. GI prophylaxis Pepcid Discharge plan: Return home possible on Tuesday. Discharge held today due to elevated heart rate/afib. Impression and plan of care have been directed as dictated by the signing physician. Vijaya Dee nurse practitioner acting as scribe for signing physician.
[2018-03-03 09:26] LABS: Albumin 3.8 g/dL (3.5-5.0); Calcium 8.7 mg/dL (8.4-10.2); Total Bilirubin 0.9 mg/dL (0.2-1.3); Total Protein 6.4 g/dL (6.3-8.2)
[2018-03-03] MEDS ORDERED: DEXTROSE 5% IN WATER 100 ML with AMIODARONE 150 MG IV ONE (10:06)
[2018-03-03] MEDS: AMIODARONE 450 MG in DEXTROSE 5% IN WATER 250 ML IV SCH ×4 (11:04→17:17)
[2018-03-03 11:32] LABS: Glucose,Whole Blood 182 mg/dL (75-99)
[2018-03-03] MEDS ORDERED: MULTIVITAMINS, THERA 1 EACH TAB PO SCH (12:00)
--- NOTE | 2018-03-03 12:00 | P.PN ---
Subjective Progress Note Date: 03/03/18 This is a pleasant 61-year-old gentleman with a past medical history significant for diabetes, hypertension, and dyslipidemia, was sent directly from Dr. Cuevas to the hospital after he was found to be tachycardic. The patient was directly referred to the emergency room. He was found to be in atrial flutter with RVR. Subsequently he was started on Cardizem drip and converted to normal sinus mechanism. No prior history of atrial flutter or cardiac arrhythmia. No history of coronary artery disease or congestive heart failure in the past. The patient does not follow with any auto painter.He denies having any chest pain or chest discomfort but he was having some shortness of breath. No dizziness or lightheadedness, syncope, feeling of heart racing or fluttering.The patient converted to normal sinus mechanism and he has been maintaining normal sinus mechanism. Please note that the patient does drink about 6 packs of beer every day. He also does have history of sleep apnea and uses a CPAP machine. An echocardiogram with Doppler study was performed which revealed an ejection fraction of 25-30%. Patient also had an ultrasound of the chest with markings for possible thoracentesis, right pleural effusion measuring 9.3 cm. Overall the patient states he feels well, he has some mild shortness of breath, he also has about 1+ peripheral edema. 03/03/2018 Patient was seen and examined this morning, he's been up ambulating in the hallway without any difficulty, mildly short of breath. He went into atrial fibrillation with rapid ventricular response and continues to have a heart rate in the 140 range. Coreg was changed to metoprolol and patient was initiated on IV amiodarone drip. Blood pressure is 120/60. No laboratory data today. Ultrasound of the chest was reviewed yesterday afternoon by pulmonary who did not feel there is a significant effusion needing thoracentesis. Patient's IV heparin was discontinued and he was initiated on Eliquis for anticoagulation. Objective - Vital Signs Vital signs: Vital Signs Temp 97 F L 03/03/18 08:00 Pulse 62 03/03/18 08:00 Resp 18 03/03/18 08:00 BP 120/69 03/03/18 08:00 Pulse Ox 94 L 03/03/18 08:00 Intake & Output 03/02/18 03/03/18 03/03/18 18:59 06:59 18:59 Intake Total 1094.824 200 200 Output Total 375 Balance 719.824 200 200 Weight 91.7 kg 89.1 kg Intake: IV 160 0.9 160 Intake, IV Titration 438.824 40 Amount Diltiazem 50 mg In Sodium 40 Chloride 0.9% 40 ml @ 5 MG/HR 5 mls/hr IV .Q10H [facility] Rx#:[id number] Heparin Sod,Pork in 0.45% 438.824 NaCl 25,000 unit In 0.45 % NaCl 1 500ml.bag @ 10. 914 UNITS/KG/HR 20 mls/hr IV .Q24H [facility] Rx#: [id number] Oral 656 200 Output: Urine 375 Other: Voiding Method Toilet Toilet # Voids 1 - Exam PHYSICAL EXAMINATION: GENERAL: 62-year-old gentleman in no acute distress at the time of my examination HEENT: Head is atraumatic, normocephalic. Pupils equal, round. Sclera anicteric. Conjunctiva are clear. Mucous membranes of the mouth are moist. Neck is supple. There is elevated jugular venous pressure.] No carotid bruit is heard. HEART EXAMINATION: Heart S1, S2 irregularly irregular . No murmur or gallop heard. CHEST EXAMINATION: Lungs reveal diminished air entry bilaterally, right greater than left. ABDOMEN: Soft, nontender. Bowel sounds are heard. No organomegaly noted. EXTREMITIES: 2+ peripheral pulses with trace evidence of peripheral edema and no calf tenderness noted. NEUROLOGIC patient is awake, alert and oriented OX3. . - Labs CBC & Chem 7: 03/03/18 05:39 03/03/18 05:39 Labs: Abnormal Lab Results - Last 24 Hours (Table) 03/02/18 03/02/18 03/03/18 Range/Units 16:43 21:01 05:39 APTT (22.0-30.0) sec Glucose 116 H (74-99) mg/dL POC Glucose (mg/dL) 127 H 127 H (75-99) mg/dL 03/03/18 03/03/18 03/03/18 Range/Units 05:39 06:08 11:30 APTT 73.3 H (22.0-30.0) sec Glucose (74-99) mg/dL POC Glucose (mg/dL) 121 H 182 H (75-99) mg/dL Assessment and Plan Plan: Assessment and plan #1 typical atrial flutter, paroxysmal, paroxysmal atrial fibrillation #2 diabetes #3 hypertension #4 alcohol abuse #5 obstructive sleep apnea #6 right sided pleural effusion #7 cardiomyopathy, exact etiology undetermined, could be secondary to EtOH Plan IV heparin will be discontinued and patient will be initiated on Eliquis 5 mg one tablet by mouth twice a day. Patient did go back and atrial fibrillation, continues to be in atrial fibrillation this morning with a heart rate in the 140 range. Coreg discontinued and patient placed on metoprolol. He will also be initiated on IV amiodarone drip today. DNP note has been reviewed, I agree with a documented findings and plan of care. Patient was seen and examined.
--- NOTE | 2018-03-03 12:42 | P.PN ---
Subjective Progress Note Date: 03/03/18 Principal diagnosis: Atrial fibrillation with rapid ventricular response. Cardiomyopathy. 62-year-old male who was apparently sent over the from my office to the emergency room. He was in my office and one of my partners for a right-sided pleural effusion. The pleural effusion apparently was noted on a previous admission and a chest x-ray done in the past. A chest x-ray was within my office. Unfortunately, because of the patient's atrial fibrillation/flutter in his rapid ventricular response, the patient was immediately sent to the emergency room where he was evaluated and admitted. He did not have a chest x- ray here and I asked the primary service to order chest x-ray. He is not currently having any shortness of breath. He was restarted on appropriate medications including blood thinners. Pending the results of the chest x-ray, he may or may not need an ultrasound of the chest. He may or may not benefit from thoracentesis pending the result of that. The patient does have a history of heart failure and hypertension as well as hyperlipidemia and hypothyroidism. The patient is a former smoker. The patient was seen again today 03/02/2018 in follow-up on the selective care unit. He is awake and alert in no acute distress. He denies any worsening shortness of breath, cough or congestion. Maintaining good O2 saturations in the 90s on room air. His rate is better controlled. He's been hemodynamically stable. White count 6.9, hemoglobin 14.6, creatinine 1.10. His chest x-ray shows minimal right-sided pleural effusion. Ultrasound of the chest showed more significant fluid but within pockets no significant free-flowing fluid,not enough for thoracentesis. The patient is seen again today 03/03/2018 in follow-up on the selective care unit. He is currently resting comfortably in bed. He denies any worsening shortness of breath, cough or congestion. Not requiring any oxygen supplementation. He did have recurrent atrial fibrillation with rapid ventricular response this morning. He's been initiated on amiodarone drip. He is anticoagulated with Eliquis. Objective - Vital Signs Vital signs: Vital Signs Temp 97 F L 03/03/18 08:00 Pulse 65 03/03/18 12:00 Resp 18 03/03/18 12:00 BP 128/86 07/06/18 12:00 Pulse Ox 93 L 03/03/18 12:00 Intake & Output 03/02/18 03/03/18 03/03/18 18:59 06:59 18:59 Intake Total 1094.824 200 200 Output Total 375 Balance 719.824 200 200 Weight 91.7 kg 89.1 kg Intake: IV 160 0.9 160 Intake, IV Titration 438.824 40 Amount Diltiazem 50 mg In Sodium 40 Chloride 0.9% 40 ml @ 5 MG/HR 5 mls/hr IV .Q10H DORA Rx#:[id number] Heparin Sod,Pork in 0.45% 438.824 NaCl 25,000 unit In 0.45 % NaCl 1 500ml.bag @ 10. 914 UNITS/KG/HR 20 mls/hr IV .Q24H DORA Rx#: [id number] Oral 656 200 Output: Urine 375 Other: Voiding Method Toilet Toilet # Voids 1 - Exam No acute distress, oriented 3. HEENT examination is grossly unremarkable. Mucous membranes are moist. No oral lesions. Neck supple. Full range of motion. No adenopathy thyromegaly or neck vein distention. Cardiovascular examination reveals irregular rhythm rate. S1-S2 normal. No S3 or S4. No discernible murmur noted. Tachycardic. Lungs reveal mostly clear breath sounds. No wheezes or rhonchi. Minimal basilar crackles. Abdomen soft bowel sounds are heard. No masses or tenderness. Extremities reveal significant lower extremity pitting edema. Is likely 1-2+. Skin is without rash or lesion. Neurologic examination is brief but nonfocal. - Labs CBC & Chem 7: 03/03/18 05:39 03/03/18 05:39 Labs: Abnormal Lab Results - Last 24 Hours (Table) 03/02/18 03/02/18 03/03/18 Range/Units 16:43 21:01 05:39 APTT (22.0-30.0) sec Glucose 116 H (74-99) mg/dL POC Glucose (mg/dL) 127 H 127 H (75-99) mg/dL 03/03/18 03/03/18 03/03/18 Range/Units 05:39 06:08 11:30 APTT 73.3 H (22.0-30.0) sec Glucose (74-99) mg/dL POC Glucose (mg/dL) 121 H 182 H (75-99) mg/dL Assessment and Plan Assessment: Assessment Atrial flutter with a rapid ventricular response Cardiomyopathy with ejection fraction 25-30%. History of alcohol abuse Right-sided pleural effusion not significant enough for thoracentesis History of hypertension History of hyperlipidemia History of hypothyroidism Previous history of tobacco use. Plan: The patient was seen and evaluated by Dr. Cota. The patient continues to maintain good O2 saturations on room air. No pulmonary complaints. We'll follow the patient on as-needed basis. I, the cosigning physician, performed a history & physical examination of the patient. Lungs sounds faint crackles in the posterior bases. Maintaining good O2 saturations in the 90s on room air. I discussed the assessment and plan of care with my nurse practitioner, Sloane Rivero. I attest to the above note as dictated by her.
[2018-03-03 16:39] LABS: Glucose,Whole Blood 146 mg/dL (75-99)
[2018-03-03] MEDS ORDERED: THIAMINE 100 MG TAB PO SCH (17:00)
[2018-03-03 20:48] LABS: Glucose,Whole Blood 170 mg/dL (75-99)
[2018-03-04] MEDS: LEVOTHYROXINE 50 MCG TAB PO SCH (06:03)
[2018-03-04] MEDS: INSULIN ASPART 100 UNIT/ML 1 ML 10 ML VIAL SQ SCH (06:25)
[2018-03-04 06:34] LABS: Basophils % (A) 1 %; Eosinophils # (A) 0.1 k/uL (0-0.7); Eosinophils % (A) 1 %; HCT 52.1 % (39.0-53.0); Lymphocytes # (A) 1.5 k/uL (1.0-4.8); Lymphocytes % (A) 17 %; MCH 31.5 pg (25.0-35.0); MCHC 32.6 g/dL (31.0-37.0); MCV 96.5 fL (80.0-100.0); Monocytes # (A) 0.5 k/uL (0-1.0); Monocytes % (A) 5 %; Neutrophils # (A) 6.2 k/uL (1.3-7.7); Neutrophils % (A) 72 %; Platelet Count 234 k/uL (150-450); WBC 8.5 k/uL (3.8-10.6)
[2018-03-04 07:00] LABS: Glucose,Whole Blood 125 mg/dL (75-99)
[2018-03-04] MEDS: ATORVASTATIN 20 MG TAB PO SCH (07:55)
[2018-03-04] MEDS: ASPIRIN 81 MG PO SCH (07:55)
[2018-03-04] MEDS: METOPROLOL TARTRATE 50 MG TAB PO SCH (07:55)
[2018-03-04] MEDS: POTASSIUM CHLORIDE ER 10 MEQ TAB.ER.PRT PO SCH (07:55)
[2018-03-04] MEDS: FUROSEMIDE 40 MG TAB PO SCH (07:56)
[2018-03-04] MEDS: SPIRONOLACTONE 25 MG TAB PO SCH (07:56)
[2018-03-04] MEDS: APIXABAN 5 MG TAB PO SCH (07:56)
[2018-03-04] MEDS: LOSARTAN 25 MG TAB PO SCH (07:56)
[2018-03-04] MEDS: AMIODARONE 450 MG in DEXTROSE 5% IN WATER 250 ML IV SCH ×2 (07:58)
[2018-03-04 08:04] VITALS: BP 124/67; PULSE 61; RESP 18; TEMP 97.3
[2018-03-04] MEDS ORDERED: AMIODARONE 200 MG TAB PO SCH (09:30)
--- NOTE | 2018-03-04 10:10 | P.PN ---
Subjective Progress Note Date: 03/04/18 This is a pleasant 61-year-old gentleman with a past medical history significant for diabetes, hypertension, and dyslipidemia, was sent directly from Dr. Cuevas to the hospital after he was found to be tachycardic. The patient was directly referred to the emergency room. He was found to be in atrial flutter with RVR. Subsequently he was started on Cardizem drip and converted to normal sinus mechanism. No prior history of atrial flutter or cardiac arrhythmia. No history of coronary artery disease or congestive heart failure in the past. The patient does not follow with any buggy loader.He denies having any chest pain or chest discomfort but he was having some shortness of breath. No dizziness or lightheadedness, syncope, feeling of heart racing or fluttering.The patient converted to normal sinus mechanism and he has been maintaining normal sinus mechanism. Please note that the patient does drink about 6 packs of beer every day. He also does have history of sleep apnea and uses a CPAP machine. An echocardiogram with Doppler study was performed which revealed an ejection fraction of 25-30%. Patient also had an ultrasound of the chest with markings for possible thoracentesis, right pleural effusion measuring 9.3 cm. Overall the patient states he feels well, he has some mild shortness of breath, he also has about 1+ peripheral edema. 03/03/2018 Patient was seen and examined this morning, he's been up ambulating in the hallway without any difficulty, mildly short of breath. He went into atrial fibrillation with rapid ventricular response and continues to have a heart rate in the 140 range. Coreg was changed to metoprolol and patient was initiated on IV amiodarone drip. Blood pressure is 120/60. No laboratory data today. Ultrasound of the chest was reviewed yesterday afternoon by pulmonary who did not feel there is a significant effusion needing thoracentesis. Patient's IV heparin was discontinued and he was initiated on Eliquis for anticoagulation. 03/04/2018 Patient was seen and examined this morning, currently in a normal sinus rhythm. Up ambulating in the hallway without any difficulty. Overall feeling well. Patient denies any chest pain, breathing overall has been stable. Blood pressure 124/60, heart rate in the 60s, 95% on room air. CBC performed this morning is normal. Objective - Vital Signs Vital signs: Vital Signs Temp 97.3 F L 03/04/18 08:00 Pulse 61 03/04/18 08:00 Resp 18 03/04/18 08:00 BP 124/67 03/04/18 08:00 Pulse Ox 95 03/04/18 08:00 Intake & Output 03/03/18 03/04/18 03/04/18 18:59 06:59 18:59 Intake Total 1005.202 320 725.212 Balance 1005.202 320 725.212 Weight 87.9 kg Intake: IV 320 0.9 160 Heparin Sod,Pork in 0.45% 160 NaCl 25,000 unit In 0.45 % NaCl 1 500ml.bag @ 10. 914 UNITS/KG/HR 20 mls/hr IV .Q24H DORA Rx#: [id number] Intake, IV Titration 207.202 245.212 Amount Amiodarone 450 mg In . 245.212 Dextrose 5% in Water 250 ml @ 1 MG/MIN 33.33 mls/ hr IV .Q7H31M DORA Rx#: [id number] Oral 798 480 Other: Voiding Method Toilet # Voids 2 # Bowel Movements 0 - Exam PHYSICAL EXAMINATION: GENERAL: 62-year-old gentleman in no acute distress at the time of my examination HEENT: Head is atraumatic, normocephalic. Pupils equal, round. Sclera anicteric. Conjunctiva are clear. Mucous membranes of the mouth are moist. Neck is supple. There is elevated jugular venous pressure.] No carotid bruit is heard. HEART EXAMINATION: Heart S1, S2 irregularly irregular . No murmur or gallop heard. CHEST EXAMINATION: Lungs reveal diminished air entry bilaterally, right greater than left. ABDOMEN: Soft, nontender. Bowel sounds are heard. No organomegaly noted. EXTREMITIES: 2+ peripheral pulses with trace evidence of peripheral edema and no calf tenderness noted. NEUROLOGIC patient is awake, alert and oriented OX3. . - Labs CBC & Chem 7: 03/04/18 06:13 03/03/18 05:39 Labs: Abnormal Lab Results - Last 24 Hours (Table) 03/03/18 03/03/18 03/03/18 Range/Units 11:30 16:37 20:46 POC Glucose (mg/dL) 182 H 146 H 170 H (75-99) mg/dL 03/04/18 Range/Units 06:49 POC Glucose (mg/dL) 125 H (75-99) mg/dL Assessment and Plan Plan: Assessment and plan #1 typical atrial flutter, paroxysmal, paroxysmal atrial fibrillation #2 diabetes #3 hypertension #4 alcohol abuse #5 obstructive sleep apnea #6 right sided pleural effusion #7 cardiomyopathy, exact etiology undetermined, could be secondary to EtOH Plan Patient may be able to be discharged home today from cardiology's perspective. We'll make him a follow-up appointment see Dr. Pathak in the office post discharge. Patient will be discharged home on amiodarone 200 mg one tablet by mouth 3 times a day, Eliquis 5 mg one tablet by mouth twice a day, Ecotrin 81 mg daily, Lipitor 20 mg daily, Lasix 40 mg by mouth twice a day, losartan 25 mg daily, metoprolol tartrate 50 mg daily, and Aldactone 25 mg daily. DNP note has been reviewed, I agree with a documented findings and plan of care. Patient was seen and examined.
--- NOTE | 2018-03-04 14:17 | P.DS ---
Providers Date of admission: 02/28/18 11:53 Attending physician: Ayana Malhotra Consults: 02/28/18 11:53 Consult Physician Routine Consulting Provider: Nohelia Mccrary Consult Reason/Comments: Atrial flutter, CHF Do you want consulting provider notified?: Yes 03/01/18 09:53 Consult Physician Routine Consulting Provider: Art Cota Consult Reason/Comments: pl;eural effusion Do you want consulting provider notified?: Already Contacted Primary care physician: Venu Montana [facility] Course: This is a 62-year-old gentleman patient of Dr. Montana, Dr. Cuevas. He has underlying history of diabetes mellitus with complications, hypothyroidism and noncompliance medications as patient doesn't want to take too many pain meds, and hyperlipidemia hypertension. He also has pleural effusion being managed by Dr. Cuevas, on his routine visit yesterday for pulmonary check, Dr. Abbott noticed that his heart rate was spitting up, and was found to have to his to one block of atrial flutter. He was subsequently admitted to emergency room. Surprisingly patient does not feel any of these palpitations, he also drinks 6 packs of beer daily, and 1/2 cup of coffee per day, he currently is on beviblock by his PCP. Patient denies any palpitations and lightheadedness chest pain however he does have chronic dependent edema, no diuretics even though he was seen at urgent care In the emergency room, EKG shows atrial flutter heart rate 150, twist 1 block and currently being seen by cardiology, and pulmonary medicine, chest x-ray shows right pleural effusion, IV heparin started until any further and further intervention from pulmonary medicine, might need thoracentesis. 03/02: Echocardiogram reveals EF of 25-30%, moderate concentric left ventricular hypertrophy, left atrium mildly dilated, mild aortic valve sclerosis, mild mitral regurgitation, mild tricuspid regurgitation, estimated right atrial pressure of 5 mmHg. Cardiology is admitted and aspirin, Coreg, losartan and spironolactone. Lasix is currently at twice daily. After thoracentesis, patient is to be started on oral anticoagulation. Ultrasound of the chest shows right pleural effusion fluid pocket 9.3 cm. Patient is ambulating in the hallway. He denies any shortness of breath. He is currently off the Cardizem drip and remains on heparin drip. TSH was 4.910 and levothyroxine increased to 50 g. Patient understands importance of no alcohol and exercise following discharge. 03/03: Dr. Cota has refused viewed films and there is no plan for thoracentesis. Patient was started on eliquis this morning. Last evening, patient states that a new patient who was very disruptive came into the room next to him and when he finally got to sleep he was dreaming extensively in his aid woke him up to take his vital signs and his heart rate was 165. Patient was back in atrial fibrillation. Heart rate is now running 130s. There is concern that this is due to alcohol withdrawal. Librium and CIWA protocol added. Discharge anticipated for the weekend. 03/04. Patient examined bedside. Denies any shortness of breath or chest pain. Patient feels better denies any significant chest pain or breathing difficulty. Cardiology evaluated the patient recommended starting patient on amiodarone 200 mg 3 times a day along with liquids and discharging the patient on these medications will follow up with Dr. Pathak. No plan for thoracentesis by pulmonary Discharge diagnosis 1. Atrial flutter with rapid ventricle rate, paroxysmal, converted to sinus rhythm. 2. Cardiomyopathy most likely secondary to alcohol abuse. 3. Right pleural effusion recurrent 4. Diabetes mellitus type 2 5. Hypothyroidism 6. Dependent edema 7. Hyperlipidemia CC a copy of discharge Dr. Montana Discharge disposition home with self-care Patient Condition at Discharge: Stable Plan - Discharge Summary New Discharge Prescriptions: New Furosemide [Lasix] 40 mg PO BID@0900,1600 #60 tab Levothyroxine Sodium [Synthroid] 50 mcg PO DAILY@0630 #30 tab Amiodarone [Cordarone] 200 mg PO TID #90 tab Apixaban [Eliquis] 5 mg PO BID #60 tab Losartan [Cozaar] 25 mg PO DAILY #30 tab Metoprolol Tartrate [Lopressor] 50 mg PO DAILY #30 tab Spironolactone [Aldactone] 25 mg PO DAILY #30 tab Continue glipiZIDE XL [Glucotrol XL] 5 mg PO DAILY Rosuvastatin Calcium [Crestor] 10 mg PO DAILY Aspirin [Adult Low Dose Aspirin EC] 81 mg PO DAILY Changed Nebivolol [Bystolic] 10 mg PO HS #0 Discontinued Levothyroxine Sodium [Synthroid] 25 mcg PO DAILY Discharge Medication List Aspirin [Adult Low Dose Aspirin EC] 81 mg PO DAILY 02/20/18 [History] Rosuvastatin Calcium [Crestor] 10 mg PO DAILY 02/20/18 [History] glipiZIDE XL [Glucotrol XL] 5 mg PO DAILY 02/20/18 [History] Furosemide [Lasix] 40 mg PO BID@0900,1600 #60 tab 03/01/18 [Rx] Levothyroxine Sodium [Synthroid] 50 mcg PO DAILY@0630 #30 tab 03/01/18 [Rx] Nebivolol [Bystolic] 10 mg PO HS #0 03/01/18 [Rx] Amiodarone [Cordarone] 200 mg PO TID #90 tab 03/04/18 [Rx] Apixaban [Eliquis] 5 mg PO BID #60 tab 03/04/18 [Rx] Losartan [Cozaar] 25 mg PO DAILY #30 tab 03/04/18 [Rx] Metoprolol Tartrate [Lopressor] 50 mg PO DAILY #30 tab 03/04/18 [Rx] Spironolactone [Aldactone] 25 mg PO DAILY #30 tab 03/04/18 [Rx] Follow up Appointment(s)/Referral(s): Robby Cuevas MD [STAFF PHYSICIAN] - 1 Week (office closed. patient to call and make own appointment) Tom Fiore MD [STAFF PHYSICIAN] - 1 Week (office closed. patient to call and make own appointment) Venu Montana DO [Primary Care Provider] - 04/12/18 (Office is closed. Please call to make follow up appointment) Patient Instructions/Handouts: Heart Failure (DC), Atrial Flutter (DC), Pleural Effusion (DC) Discharge Disposition: HOME SELF-CARE
== END 2018-03-04 12:25 | disposition home or self-care (01) | DRG 310 ==
LOC: EC 09:26 → 6SEL 11:53
PROVIDERS: ADMIT Family Medicine; ATTEND Family Medicine
DX: I48.3 Typical atrial flutter (principal); E03.9 Hypothyroidism, unspecified; I42.6 Alcoholic cardiomyopathy; I48.0 Paroxysmal atrial fibrillation; E11.8 Type 2 diabetes mellitus with unspecified complications; E78.5 Hyperlipidemia, unspecified; F10.10 Alcohol abuse, uncomplicated; G47.33 Obstructive sleep apnea (adult) (pediatric); I11.0 Hypertensive heart disease with heart failure; I50.9 Heart failure, unspecified; Z79.82 Long term (current) use of aspirin; Z79.84 Long term (current) use of oral hypoglycemic drugs; Z79.890 Hormone replacement therapy; Z79.899 Other long term (current) drug therapy; Z91.14 Patient's other noncompliance with medication regimen; Z79.01 Long term (current) use of anticoagulants; Z87.891 Personal history of nicotine dependence; Z71.41 Alcohol abuse counseling and surveillance of alcoholic
CPT/HCPCS: 36415; 71046; 76604; 80048; 80053; 82550; 82553; 83735; 83880; 84443; 84481; 84484; 85025; 85610; 85730; 93005; 93306; 96365; 96366; 96368; 96376; 99291

== ENCOUNTER → 2018-04-11 | Outpatient (CLI) | payer BC ==
[2018-04-11 12:24] LABS: HCT 42.4 % (39.0-53.0); HGB 14.7 gm/dL (13.0-17.5); MCH 30.8 pg (25.0-35.0); MCHC 34.7 g/dL (31.0-37.0); Mean Platelet Volume 7.1; Platelet Count 206 k/uL (150-450); RBC 4.78 m/uL (4.30-5.90); RDW 12.7 % (11.5-15.5); WBC 7.2 k/uL (3.8-10.6)
[2018-04-11 12:26] LABS: MCV 88.7 fL (80.0-100.0)
[2018-04-11 12:30] LABS: Potassium 4.6 mmol/L (3.5-5.1)
== END ==
LOC: LABPAT 10:50
PROVIDERS: ATTEND Internal Medicine Interventional Cardiology
DX: Z01.812 Encounter for preprocedural laboratory examination (principal); I50.22 Chronic systolic (congestive) heart failure; I48.0 Paroxysmal atrial fibrillation
CPT/HCPCS: 36415; 80051; 82565; 84520; 85027

== ENCOUNTER 2018-04-24 06:36 | Day surgery (SDC) | payer BC ==
[2018-04-18 16:21] VITALS: BMI 27.8
[2018-04-24 07:12] VITALS: TEMP 98.3
[2018-04-24 07:29] LABS: Glucose,Whole Blood 157 mg/dL (75-99)
[2018-04-24] MEDS: MIDAZOLAM 2 MG/2 ML VIAL IV ONE ×2 (08:16→08:20)
[2018-04-24] MEDS ORDERED: LIDOCAINE 1% INJ 10MG/ML (20 ML MDV) SQ ONE (08:19)
[2018-04-24] MEDS: VERAPAMIL SYRINGE (5 MG/10 ML) INTRAARTER ONE ×2 (08:27→08:39)
[2018-04-24] MEDS ORDERED: MIDAZOLAM 2 MG/2 ML VIAL IV ONE (08:28)
[2018-04-24] MEDS ORDERED: IOPAMIDOL-370 125ML BTL INJ ONE ×2 (08:38→08:39)
[2018-04-24] MEDS ORDERED: RX INFO: IV CONTRAST WAS GIVEN 1 EACH MISC MISCELLANE PRN (08:56)
[2018-04-24] MEDS ORDERED: SODIUM CHLORIDE 0.9% 1,000 ML IV SCH (09:00)
--- NOTE | 2018-04-24 09:45 | CC ---
CARDIAC CATHETERIZATION REPORT DATE OF SERVICE: 04/24/2018 PERFORMING PHYSICIAN: Tom Fiore MD. PROCEDURE PERFORMED: Selective right and left coronary angiogram. INDICATION: This is a pleasant 62-year-old gentleman with a past medical history who was diagnosed recently with cardiomyopathy as well as paroxysmal atrial fibrillation. The heart catheterization is to rule out any severe underlying coronary artery disease. APPROACH: Right radial artery. COMPLICATION: None. LEVEL OF SEDATION: Moderate with sedation length of 36 minutes. PROCEDURE DESCRIPTION: After obtaining an informed consent, the patient was brought to the cardiac shipyard laborer. The right radial artery was cannulated using micropuncture technique, the micropuncture wire passed easily, then I placed a 6-[place] sheath in the right radial artery. After that, I did selective right and left coronary angiogram using JR4 and JL. I did after a 5-[place] in the right radial artery. After that, I gave the patient 2 mg of verapamil IA. I did not give the patient heparin because the patient took his Eliquis. Selective right and left coronary angiogram was performed using JR4 and JL3.5 catheters. The procedure was completed without any complication. SELECTIVE CORONARY ANGIOGRAM: 1. Right coronary artery is a large caliber vessel and it is a dominant vessel. The RCA appeared to have mild disease only in the midportion. It bifurcates distally into PDA and PLV branches both are angiographically normal. The left main is angiographically normal it bifurcates. It bifurcates into left circumflex and left anterior descending artery. 2. Left circumflex is a large caliber vessel and it is a nondominant vessel. The left circumflex system is angiographically normal as well. 3. The LAD the proximal LAD appeared to be angiogram. The proximal LAD is normal. Gives rise into a diagonal branch which has an ostial disease appeared to be in the range of 50%. The mid LAD after the ostial artery the mid LAD after the first diagonal has mild disease has disease appeared to be in the range of in the range of 40%. The LAD distally appeared to be angiographically normal. CONCLUSION: 1. Intermediate disease involving the involving the mid LAD and mid history intermediate disease involving the mid LAD and ostial first diagonal branch of the LAD. 2. Maximize medical treatment and follow up with the patient. MMODL / IJN: [id number] /
--- NOTE | 2018-04-24 10:15 | LTR ---
DATE OF SERVICE: 04/24/2018 RE: Zack Walsh Dear Dr. Montana; Mr. Zack Walsh underwent a heart catheterization today and that revealed intermediate nonobstructive coronary artery disease involving the LAD. Maximized medical treatment is recommended at this point of time and no need for any stenting. I want to thank you for allowing us to participate in his care and please do not hesitate to call if you have any question or concern. Sincerely, MD BHARTI Jarrett / TARSHAN: [id number] /
[2018-04-24] MEDS ORDERED: NITROGLYCERIN SL TABS 0.4 MG TAB SUBLINGUAL PRN (11:00)
[2018-04-24] MEDS ORDERED: ATORVASTATIN 80 MG TAB PO ONE (11:00)
[2018-04-24] MEDS ORDERED: SODIUM CHLORIDE 0.9% 1,000 ML in EMPTY BAG 1 BAG IV ONE (11:00)
[2018-04-24] MEDS ORDERED: ASPIRIN 325 MG TAB PO ONE (11:00)
[2018-04-24] MEDS ORDERED: ALPRAZolam 0.5 MG TAB PO PRN (11:00)
[2018-04-24] MEDS ORDERED: ALPRAZolam 0.25 MG TAB PO PRN (11:00)
[2018-04-24 11:56] VITALS: BP 137/65; PULSE 47; RESP 16
== END 2018-04-24 13:51 | disposition home or self-care (01) ==
LOC: CATHCVL 06:36
PROVIDERS: ATTEND Internal Medicine Interventional Cardiology
DX: I25.10 Atherosclerotic heart disease of native coronary artery without angina pectoris (principal); I50.22 Chronic systolic (congestive) heart failure; I42.9 Cardiomyopathy, unspecified; I48.0 Paroxysmal atrial fibrillation
CPT/HCPCS: 93454; 99152; 99153; C1894 ×3; C1769; J2250; J2001; Q9967

== ENCOUNTER → 2018-10-12 | Outpatient (CLI) | payer BC ==
--- NOTE | 2018-10-12 14:56 | SFUN ---
SLEEP CENTER FOLLOW UP NOTE DATE OF SERVICE: 10/12/2018 A 63-year-old gentleman who has been followed in the Sleep Center for treatment of obstructive sleep apnea-hypopnea syndrome. Patient successfully continued to use his CPAP equipment every night for the whole night without any significant problems related to mask fitting, pressure or humidification. No snoring with the machine. He time. [place] Sleepiness Scale is 8, which is normal. I checked his CPAP unit, CPAP pressure in the range 5 to 11 most of the time pressure is 10.3, usage is every night, 23/30 nights more than 4 hours, average 5.1 hours per night. Leak is borderline 32 L/minute. Apnea-hypopnea index 3.7, which is normal range. MEDICATIONS: Levothyroxine, amiodarone, furosemide, losartan, spironolactone, Rosuvastatin, glipizide, Eliquis, metoprolol. PHYSICAL EXAM: Patient in no distress. BP 134/71, HR 64, RR 14, height 5 foot 8 inches, weight 193 pounds. Body mass index 29.1. Patient decreased his weight 9 pounds since previous visit. Temperature 98.9, oxygen saturation at room air 95%. OROPHARYNX: Moderately low position of soft palate. ABDOMEN: Slightly obese. Neck Supple, no JVD. Thyroid is not palpable. LUNGS Clear to percussion and to auscultation. Good air exchange. No wheezing or rhonchi. HEART S1, S2 regular. No murmurs, gallops, or rubs. EXTREMITIES No clubbing or cyanosis. PROFESSOR OF LEGAL STUDIES Awake, alert, and oriented X3. Cranial nerves 2 to 7 intact. There is no fasciculation or atrophy. noted. No focal deficits observed. IMPRESSION: 1. Severe obstructive sleep apnea-hypopnea syndrome, apnea-hypopnea index 40.2 on control with CPAP. The patient demonstrated good compliance with treatment, benefitting from treatment. 2. Hypertension. 3. Diabetes mellitus. 4. Hyperlipidemia. 5. Hypothyroidism. 6. Status post tonsillectomy, adenoidectomy, and uvulectomy. PLAN: 1. We will maintain all necessary prescriptions for mask, tube and filters. 2. Sleep hygiene with regular time in bed for at least 7-1/2 hours. 3. No driving if feeling any sleepiness. 4. Patient will continue to use CPAP treatment every night for the whole night. 5. Followup visit in 1 year or earlier if patient has any problems. Thank you very much for allowing me to participate in management of your patient. Sincerely, Mauri Sandoval MD, PhD, FAASM Diplomat of [employer] [employer] Analytical Research Chemist of [facility] [place] MMODL / TARSHAN: [id number] /
== END | disposition home or self-care (01) ==
LOC: SLEEP 13:23
PROVIDERS: ATTEND Internal Medicine
DX: G47.33 Obstructive sleep apnea (adult) (pediatric) (principal); I10 Essential (primary) hypertension; E11.9 Type 2 diabetes mellitus without complications; E78.5 Hyperlipidemia, unspecified; E03.9 Hypothyroidism, unspecified; Z90.09 Acquired absence of other part of head and neck; Z99.89 Dependence on other enabling machines and devices

== ENCOUNTER → 2019-10-11 | Outpatient (CLI) | payer BC, MEDICARE ==
--- NOTE | 2019-10-11 15:26 | PN ---
PROGRESS NOTE DATE OF SERVICE: 10/11/2019 A 64-year-old gentleman who has been followed in the Sleep Center for treatment of obstructive sleep apnea-hypopnea syndrome. Patient continued to use his CPAP equipment every night without significant problems. No snoring with the machine. [place] Sleepiness Scale today is 3, which is absolutely normal. I checked CPAP unit, range of the pressure 5-11 with average pressure 10 cm of water. For the whole year 365 nights, patient uses 363 nights and 340 nights more than 4 hours with average usage 5.3 hours per night, which is good compliance. Leak is 36 L/minute, which is slightly high for the nasal pillow mask. Apnea-hypopnea index is normal at 3.8. MEDICATIONS: Levothyroxine, amiodarone, furosemide, losartan, spironolactone, Rosuvastatin, Glipizide, Centrum Silver, turmeric, Eliquis, metoprolol. PHYSICAL EXAM: Patient in no distress. BP 114/55, HR 59, RR 16, height 5, 8, weight 200.4, temperature 98.4, oxygen saturation on room 98%. OROPHARYNX: Low position of soft palate. Mallampati 3. No uvula. ABDOMEN: Slightly obese. NECK: Supple, no JVD. Thyroid is not palpable. LUNGS: Clear to percussion and to auscultation. Good air exchange. No wheezing or rhonchi. HEART: S1, S2 regular. No murmurs, gallops, or rubs. EXTREMITIES: No clubbing or cyanosis. NATURAL GAS ENGINEER: Awake, alert, and oriented X3. Cranial nerves 2 to 7 intact. There is no fasciculation or atrophy. noted. No focal deficits observed. IMPRESSION: 1. Obstructive sleep apnea-hypopnea syndrome. Patient demonstrated great compliance with treatment benefitting from treatment. 2. Hypertension. 3. Diabetes mellitus. 4. Hyperlipidemia. 5. Hypothyroidism. 6. Status post tonsillectomy and adenoidectomy, and uvulectomy. PLAN: 1. Patient will continue to use CPAP equipment with the same regimen. 2. Watching and losing weight. 3. Prescription for all necessary CPAP supplies including mask, tube, filters. 4. Precautions related to driving. No driving if feeling sleepiness. Thank you very much for allowing me to participate in the management of your patient. Sincerely, Mauri Sandoval MD, PhD, FAASM Diplomat of [place] [employer] [place] [employer] Radiation Oncology Manager of [facility] [place] MMODL / TARSHAN: [id number] /
== END | disposition home or self-care (01) ==
LOC: SLEEP 13:38
PROVIDERS: ATTEND Internal Medicine
DX: G47.33 Obstructive sleep apnea (adult) (pediatric) (principal); I10 Essential (primary) hypertension; E11.9 Type 2 diabetes mellitus without complications; E78.5 Hyperlipidemia, unspecified; E03.9 Hypothyroidism, unspecified; Z90.89 Acquired absence of other organs; Z79.01 Long term (current) use of anticoagulants; Z79.84 Long term (current) use of oral hypoglycemic drugs; Z79.899 Other long term (current) drug therapy

== ENCOUNTER → 2019-12-11 | Outpatient (CLI) | payer MEDICARE ==
[2019-12-11 15:37] LABS: African American GFR (CKD) 73.1 (60.0-200.0); Anion Gap 10.1 mmol/L (4.00-12.00); BUN/Creat Ratio 16.67 Ratio (12.00-20.00); Calcium 9.2 mg/dL (8.7-10.3); Carbon Dioxide 26.9 mmol/L (21.6-31.8); Chol/HDL Ratio 4.16; LDL Cholesterol,Calculated 95.8 mg/dL (0.0-131.0); Non-African American GFR(CKD) 63.1 (60.0-200.0); Potassium 4.7 mmol/L (3.5-5.5); VLDL Calculation 24.2 mg/dL (5.00-40.00)
[2019-12-11 15:45] LABS: Hemoglobin A1C 7.5 % (4.0-6.0)
== END | disposition home or self-care (01) ==
LOC: LABWHC1 08:48
PROVIDERS: ATTEND Family Medicine
DX: Z12.5 Encounter for screening for malignant neoplasm of prostate (principal); E11.9 Type 2 diabetes mellitus without complications
CPT/HCPCS: 36415; 80048; 80061; 83036; 84153; 84450; 84460

== ENCOUNTER → 2021-09-03 | Day surgery (SDC) | payer MEDICARE ==
[2021-08-28 14:53] VITALS: BMI 29.6
[~2021-09-03] MED LIST: GLUCAGON 1 MG/ML VIAL ONE; LACTATED RINGERS 1,000 ML IV ONE; LACTATED RINGERS 1,000 ML IV SCH; LIDOCAINE 1% (10MG/ML) FOR IV START INTRADERMA PRN; LIDOCAINE 1% INJ 10MG/ML (20 ML MDV) ONE; PROPOFOL 10 MG/ML 20 ML VIAL IV ONE
[2021-09-03 07:28] VITALS: TEMP 97.6
[2021-09-03 07:37] LABS: Glucose,Whole Blood 154 mg/dL (75-99)
--- NOTE | 2021-09-03 08:18 | P.GSHP ---
History of Present Illness H&P Date: 09/03/21 Chief Complaint: GI bleed This is a 66-year-old male presents today for colonoscopy. Issues with rectal bleeding. Past Medical History Past Medical History: Atrial Fibrillation, Heart Failure, Diabetes Mellitus, Hyperlipidemia, Sleep Apnea/CPAP/BIPAP, Thyroid Disorder Additional Past Medical History / Comment(s): Blood on cologuard test, diverticulitis, History of Any Multi-Drug Resistant Organisms: None Reported Past Surgical History: Adenoidectomy, Tonsillectomy Additional Past Surgical History / Comment(s): colonoscopy, Past Anesthesia/Blood Transfusion Reactions: Motion Sickness Smoking Status: Former smoker - Past Family History Mother Family Medical History: No Reported History Medications and Allergies Home Medications Medication Instructions Recorded Confirmed Type Rosuvastatin Calcium [Crestor] 10 mg PO DAILY 02/20/18 08/28/21 History Metoprolol Tartrate [Lopressor] 50 mg PO BID 04/18/18 08/28/21 History Multivit-Min/FA/Lycopen/Lutein 1 each PO DAILY 04/18/18 08/28/21 History [Centrum Silver Men Tablet] Amiodarone [Cordarone] 100 mg PO QAM 08/28/21 08/28/21 History Apixaban [Eliquis] 5 mg PO BID 08/28/21 08/28/21 History Fenofibrate Nanocrystallized 48 mg PO W/SUPPER 08/28/21 08/28/21 History [Fenofibrate] Furosemide [Lasix] 40 mg PO QAM 08/28/21 08/28/21 History Levothyroxine Sodium [Synthroid] 75 mcg PO DAILY 08/28/21 08/28/21 History Losartan [Cozaar] 12.5 mg PO DAILY 08/28/21 08/28/21 History Pioglitazone [Actos] 45 mg PO DAILY 08/28/21 08/28/21 History Spironolactone [Aldactone] 12.5 mg PO DAILY 08/28/21 08/28/21 History Turmeric Root Extract [Turmeric] 500 mg PO MOTH 08/28/21 08/28/21 History glipiZIDE [Glucotrol] 10 mg PO AC-BRKFST 08/28/21 08/28/21 History Allergies Allergy/AdvReac Type Severity Reaction Status Date / Time No Known Allergies Allergy Verified 08/28/21 14:40 Surgical - Exam Vital Signs Temp Pulse Resp BP Pulse Ox 97.6 F 59 L 18 166/75 97 09/03/21 07:27 09/03/21 07:27 09/03/21 07:27 09/03/21 07:27 09/03/21 07:27 - General well developed, well nourished, no distress - Eyes PERRL - ENT normal pinna - Neck no masses - Respiratory normal expansion - Cardiovascular Rhythm: regular - Abdomen Abdomen: soft, non tender Results - Labs Abnormal Lab Results - Last 24 Hours (Table) 09/03/21 Range/Units 07:35 POC Glucose (mg/dL) 154 H (75-99) mg/dL Assessment and Plan Assessment: Recommendations we'll perform colonoscopy.
--- NOTE | 2021-09-03 08:37 | P.OP ---
Date of Procedure: 09/03/21 Preoperative Diagnosis: GI bleed Postoperative Diagnosis: Severe diverticulosis of sigmoid left colon Sigmoid colon polyp Procedure(s) Performed: Colonoscopy Anesthesia: MAC Surgeon: Grayson West Pathology: none sent Condition: stable Disposition: PACU Description of Procedure: The patient's placed on the endoscopy table in the lateral position. He received IV sedation. Digital rectal exam was performed. This revealed no abnormalities. The flexible colonoscope was then placed patient anus and passed throughout the entire colon. The ileocecal valve was visualized. Cecum, ascending and transverse colon appeared normal. In the descending colon there is mild diverticular changes. In the sigmoid colon there is extensive severe diverticulosis seen colon was quite tortuous. There was a small polyp seen at the base of the diverticulum the polyp was not biopsied due to the position of the polyp was impossible to reach the scope. Scope was withdrawn. The rectum appeared normal. Scope withdrawn for patient. His presumed patient was bleeding from diverticular disease.
[2021-09-03 08:47] VITALS: RESP 16
[2021-09-03 09:09] VITALS: BP 141/68; PULSE 63
== END ==
LOC: ORWHC2ENDO 07:10
PROVIDERS: ATTEND Surgery
DX: K57.30 Diverticulosis of large intestine without perforation or abscess without bleeding (principal); I48.91 Unspecified atrial fibrillation; I50.9 Heart failure, unspecified; E78.5 Hyperlipidemia, unspecified; E03.9 Hypothyroidism, unspecified; Z87.891 Personal history of nicotine dependence
CPT/HCPCS: 45378; J1610; J2001; J2704

== ENCOUNTER → 2022-08-05 | Outpatient (CLI) | payer MEDICARE ==
--- NOTE | 2022-08-05 13:51 | P.PN ---
Subjective DATE: 08/05/2022 FOLLOW UP VISIT. Patient with obstructive sleep apnea hypopnea syndrome return to sleep center for follow-up visit. Information from previous visit have been reviewed. Patient is using PAP equipment every night for the whole night, getting PAP supplies in time. The patient does not have significant problems with the mask, PAP unit and humidification. [place] sleepiness scale is 3, which is normal. I checked information from PAP unit. PAP unit pressure 5-11, average 10.7 cm H2O. Usage is 100 % for more then 4 hours, average 6 hours per night. Leak is slightly increased to 36 l/m. Apnea Hypopnea Index is 2.8, which is normal. MEDICATIONS:1. Levothyroxine 75 g once a day 2. Amiodarone 3. Furosemide 40 mg once a day 4. Losartan 12.5 mg once a day 5. Spironolactone 12.5 mg once a day 6. Crestor 10 mg once a day 7. Glipizide 10 mg once a day 8. Eliquis 5 mg twice a day 9. Metoprolol 50 mg twice a day During physical exam: GENERAL: A pleasant patient without any distress. VITAL SIGNS: BP 145/66, HR 60, RR 18 , weight 207.2, temperature 96.3, oxygen saturation at room air 98 % . HEENT: PERRLA, EOMI.low position of soft palate, Mallapati 3 . NECK: Supple. No JVD. LUNGS: Clear to percussion and to auscultation. Good air exchange. No wheezing or rhonchi. HEART: S1, S2 regular. ABDOMEN: Soft and nontender. Obese EXTREMITIES: No clubbing or cyanosis. SAFETY PROFESSIONAL: Awake, alert, and oriented x3. No focal deficit. Impressions: 1. Obstructive sleep apnea-hypopnea syndrome. Patient demonstrated great comp liance with treatment, benefiting from treatment. 2. Obesity. 3. Hypertension. 4. Diabetes mellitus. 5. Hyperlipidemia. 6. Hypothyroidism. 7. Status post tonsillectomy, adenoidectomy and uvulectomy. Plan: 1. Continue using PAP equipment every night for the whole night. 2. To change air filter at least 1-2 times per month. 3. PAP unit should stay lower then position of the head. 4. Advised patient to remove all remaining water from humidifier canister daily and make it dry after each usage. Refill canister with fresh distilled water before each usage. 5. Sleep hygiene with regular time in bed for at least 8 hours. 6. Precautions related to driving. No driving if feel any sleepiness. 7. I will maintain prescription for PAP supplies including mask, tube, filters. 8. Follow up visit in 6 months or earlier if patient has any problems. 9. Watching and losing weight. Thank you very much for allowing me to participate in the management of your patient. Mauri Sandoval MD, PhD, FAASM. Diplomat of [place] [employer], Sleep Medicine Board by [place] [employer] Data Entry Machine Operator of [facility] [place]
== END ==
LOC: SLEEP 13:17
PROVIDERS: ATTEND Internal Medicine
DX: G47.33 Obstructive sleep apnea (adult) (pediatric) (principal); E66.9 Obesity, unspecified; I10 Essential (primary) hypertension; E11.9 Type 2 diabetes mellitus without complications; E78.5 Hyperlipidemia, unspecified; E03.9 Hypothyroidism, unspecified; Z90.89 Acquired absence of other organs; Z99.89 Dependence on other enabling machines and devices; Z79.890 Hormone replacement therapy; Z79.899 Other long term (current) drug therapy; Z87.891 Personal history of nicotine dependence
CPT/HCPCS: 99212

== ENCOUNTER → 2023-02-10 | Outpatient (CLI) | payer MEDICARE ==
--- NOTE | 2023-02-10 14:39 | P.PN ---
Subjective DATE: 02/10/2023 FOLLOW UP VISIT. Patient with obstructive sleep apnea hypopnea syndrome return to sleep center for follow-up visit. Information from previous visit have been reviewed. Patient is using PAP equipment every night for the whole night, getting PAP supplies in time. The patient does not have significant problems with the mask, PAP unit and humidification. [place] sleepiness scale is 2, which is normal. I checked information from PAP unit. PAP unit pressure 5-11, average 10.7 cm H2O. Usage is 100 % for more then 4 hours, average 6.3 hours per night. Leak is slightly high 35 l/m. Apnea Hypopnea Index is 0.9, which is normal. MEDICATIONS:1. Levothyroxine 75 g once a day 2. Amiodarone 100 mg once a day 3. Furosemide 40 mg once a day 4. Losartan 12.5 mg once a day 5. Spironolactone 12.5 mg once a day 6. Rosuvastatin 10 mg once a day 7. Glipizide 10 mg once a day 8. Fenofibrate 48 mg once a day 9. Eliquis 5 mg twice a day 10. Metoprolol 50 mg twice a day During physical exam: GENERAL: A pleasant patient without any distress. VITAL SIGNS: BP 142/68, HR 59, RR 18, weight 209.8, temperature 98.3, oxygen saturation at room air 97 % . HEENT: PERRLA, EOMI.low position of soft palate, Mallapati 3 . NECK: Supple. No JVD. LUNGS: Clear to percussion and to auscultation. Good air exchange. No wheezing or rhonchi. HEART: S1, S2 regular. ABDOMEN: Soft and nontender. Slightly obese EXTREMITIES: No clubbing or cyanosis. ENTERPRISE SOFTWARE ENGINEER: Awake, alert, and oriented x3. No focal deficit. Impressions: 1. Obstructive sleep apnea-hypopnea syndrome. Patient demonstrated great compliance with treatment, benefiting from treatment. 2. Hypertension. 3. Obesity. 4. Diabetes mellitus. 5. Hyperlipidemia. 6. Hypothyroidism. 7. Status post adenoidectomy, tonsillectomy, uvulectomy. Plan: 1. Continue using PAP equipment every night for the whole night. 2. To change air filter at least 1-2 times per month. 3. PAP unit should stay lower then position of the head. 4. Advised patient to remove all remaining water from humidifier canister daily and make it dry after each usage. Refill canister with fresh distilled water before each usage. 5. Sleep hygiene with regular time in bed for at least 8 hours. 6. Precautions related to driving. No driving if feel any sleepiness. 7. I will maintain prescription for PAP supplies including mask, tube, filters. 8. Watching weight. 9. Follow up visit in 6 months or earlier if patient has any problems. Thank you very much for allowing me to participate in the management of your patient. Mauri Sandoval MD, PhD, FAASM. Diplomat of [place] [employer], Sleep Medicine Board by [place] [employer] Resource Technician of [facility] [place]
== END ==
LOC: 3 N SLEEP 14:17
PROVIDERS: ATTEND Internal Medicine
DX: G47.33 Obstructive sleep apnea (adult) (pediatric) (principal); Z99.89 Dependence on other enabling machines and devices; I10 Essential (primary) hypertension; E11.9 Type 2 diabetes mellitus without complications; E78.5 Hyperlipidemia, unspecified; E03.9 Hypothyroidism, unspecified; Z98.890 Other specified postprocedural states; Z79.890 Hormone replacement therapy; Z79.01 Long term (current) use of anticoagulants; Z79.899 Other long term (current) drug therapy; Z79.84 Long term (current) use of oral hypoglycemic drugs; Z87.891 Personal history of nicotine dependence

== ENCOUNTER → 2023-08-18 | Outpatient (CLI) | payer MEDICARE ==
--- NOTE | 2023-08-18 12:22 | P.PN ---
Subjective DATE: 08/18/2023 FOLLOW UP VISIT. Patient with obstructive sleep apnea hypopnea syndrome return to sleep center for follow-up visit. Information from previous visit have been reviewed. Patient is using PAP equipment every night for the whole night, getting PAP supplies in time. The patient does not have significant problems with the mask, PAP unit and humidification. [place] sleepiness scale is 1, which is perfect. I checked information from PAP unit. PAP unit pressure 5-11, average 10.8 cm H2O. Usage is 100 % for more then 4 hours, average 6.1 hours per night. Leak is 34 l/m, which is in acceptable range. Apnea Hypopnea Index is 3.2, which is normal. MEDICATIONS:1. Amiodarone 100 mg once a day 2. Furosemide 40 mg once a day 3. Losartan 12.5 mg once a day 4. Spironolactone 12.5 mg once a day 5. Crestor 10 mg once a day 6. Glipizide 10 mg once a day 7. Actos 45 mg once a day 8. Eliquis 5 mg twice a day 9. Metoprolol 50 mg twice a day During physical exam: GENERAL: A pleasant patient without any distress. VITAL SIGNS: BP 144/62, HR 60, RR 16 , weight 214, temperature 98.0, oxygen saturation at room air 96 % . HEENT: PERRLA, EOMI.low position of soft palate, Mallapati 3 . NECK: Supple. No JVD. LUNGS: Clear to percussion and to auscultation. Good air exchange. No wheezing or rhonchi. HEART: S1, S2 regular. ABDOMEN: Soft and nontender. Slightly obese EXTREMITIES: No clubbing or cyanosis. SOFTWARE APPLICATIONS DEVELOPER: Awake, alert, and oriented x3. No focal deficit. 5 slightly increased range of the pressure in CPAP unit to 512 centimeters of water. Impressions: 1. Obstructive sleep apnea-hypopnea syndrome. Patient demonstrated great compliance with treatment, benefiting from treatment. 2. Obesity, BMI 32.5, patient increased weight on 5 pounds comparing with previous visit. 3. Hypertension. 4. Diabetes mellitus. 5. Hyperlipidemia. 6. Status post adenoidectomy, tonsillectomy and uvuectomy. Plan: 1. Continue using PAP equipment every night for the whole night. 2. To change air filter at least 1-2 times per month. 3. PAP unit should stay lower then position of the head. 4. Advised patient to remove all remaining water from humidifier canister daily and make it dry after each usage. Refill canister with fresh distilled water before each usage. 5. Sleep hygiene with regular time in bed for at least 8 hours. 6. Precautions related to driving. No driving if feel any sleepiness. 7. I will maintain prescription for PAP supplies including mask, tube, filters. 8. Follow up visit in 6 months or earlier if patient has any problems. 9. Watching and losing weight. Thank you very much for allowing me to participate in the management of your patient. Mauri Sandoval MD, PhD, FAASM. Diplomat of [place] [employer], Sleep Medicine Board by [place] [employer] Transportation Officer of [facility] [place]
== END ==
LOC: 3 N SLEEP 11:24
PROVIDERS: ATTEND Internal Medicine
DX: G47.33 Obstructive sleep apnea (adult) (pediatric) (principal); E66.9 Obesity, unspecified; E11.9 Type 2 diabetes mellitus without complications; E78.5 Hyperlipidemia, unspecified; I10 Essential (primary) hypertension; Z68.32 Body mass index [BMI] 32.0-32.9, adult; Z79.01 Long term (current) use of anticoagulants; Z79.84 Long term (current) use of oral hypoglycemic drugs; Z79.899 Other long term (current) drug therapy; Z99.89 Dependence on other enabling machines and devices; Z87.891 Personal history of nicotine dependence; Z90.89 Acquired absence of other organs
CPT/HCPCS: 99212

== ENCOUNTER → 2023-10-05 | Outpatient (CLI) | payer MEDICARE ==
--- NOTE | 2023-10-05 11:26 | XR ---
EXAMINATION TYPE: XR chest 2V DATE OF EXAM: 10/05/2023 COMPARISON: 03/01/2018 TECHNIQUE: PA and lateral views submitted. HISTORY: Atrial fibrillation FINDINGS: The lungs are clear and there is no pneumothorax, pleural effusion, or focal pneumonia. Heart size normal and no overt failure. Osseous structures demonstrate hypertrophic and degenerative changes of the spine. Underlying COPD. Pleural thickening noted which is similar to prior exam. IMPRESSION: 1. No acute process.
[2023-10-05 16:18] LABS: T4, Free (Free Thyroxine) 1.84 ng/dL (0.80-1.80)
== END | disposition home or self-care (01) ==
LOC: RADXRMAIN 11:00
PROVIDERS: ATTEND Internal Medicine Interventional Cardiology
DX: I48.91 Unspecified atrial fibrillation (principal)
CPT/HCPCS: 71046; 84439; 84443; 84450; 84460

== ENCOUNTER 2024-01-09 19:00 | Emergency (ER) | payer MEDICARE ==
[2024-01-09 19:17] VITALS: TEMP 98.4
--- NOTE | 2024-01-09 20:01 | ED ---
General Adult HPI - General Chief complaint: Neuro Symptoms/Deficit Stated complaint: Afib,AMA Time Seen by Provider: 01/09/24 19:27 Source: patient, family Mode of arrival: ambulatory Limitations: no limitations - History of Present Illness Initial comments: This patient is a 68-year-old man here because he is "not feeling right." The patient states that he had been out using his riding lawn more for a couple of hours. When he went inside he states he just did not feel right. He was very sweaty. The patient's notes that he was slow to answer questions. The patient denies having pain. There is no dyspnea. He does note that he recently started taking Ozempic at the start of this month and he has not felt like his usual self. -: hour(s) Severity scale (1-10): 0 Consistency: constant Improves with: none Worsens with: none Associated Symptoms: diaphoresis Treatments Prior to Arrival: none - Related Data Home Medications Medication Instructions Recorded Confirmed Rosuvastatin Calcium [Crestor] 10 mg PO DAILY 02/20/18 01/09/24 Metoprolol Tartrate [Lopressor] 50 mg PO BID 04/18/18 01/09/24 Mv-Min/Folic/K1/Lycopen/Lutein 1 tab PO DAILY 04/18/18 01/09/24 [Centrum Silver Men Tablet] Amiodarone [Cordarone] 100 mg PO DAILY 08/28/21 01/09/24 Apixaban [Eliquis] 5 mg PO BID 08/28/21 01/09/24 Fenofibrate Nanocrystallized 48 mg PO W/SUPPER 08/28/21 01/09/24 [Fenofibrate] Furosemide [Lasix] 40 mg PO DAILY 08/28/21 01/09/24 Levothyroxine Sodium [Synthroid] 75 mcg PO AC-BRKFST 08/28/21 01/09/24 Losartan [Cozaar] 12.5 mg PO DAILY 08/28/21 01/09/24 Pioglitazone [Actos] 45 mg PO DAILY 08/28/21 01/09/24 Spironolactone [Aldactone] 12.5 mg PO DAILY 08/28/21 01/09/24 Turmeric Root Extract [Turmeric] 500 mg PO MOTH 08/28/21 01/09/24 glipiZIDE [Glucotrol] 10 mg PO DAILY 08/28/21 01/09/24 Psyllium Husk [Metamucil] 2 gm PO BID 01/09/24 01/09/24 Semaglutide [Ozempic] 1 mg SQ WE 01/09/24 01/09/24 Allergies Allergy/AdvReac Type Severity Reaction Status Date / Time No Known Allergies Allergy Verified 01/09/24 21:31 Review of Systems ROS Statement: Those systems with pertinent positive or pertinent negative responses have been documented in the HPI. ROS Other: All systems not noted in ROS Statement are negative. Constitutional: Denies: fever, chills, weakness Eyes: Denies: vision change Respiratory: Denies: cough, dyspnea Cardiovascular: Denies: chest pain, palpitations, orthopnea, edema, syncope Gastrointestinal: Denies: abdominal pain, nausea, vomiting, diarrhea, constipation Genitourinary: Denies: dysuria, frequency, hematuria Musculoskeletal: Denies: back pain Skin: Denies: rash Neurological: Denies: headache, weakness, numbness Past Medical History Past Medical History: Atrial Fibrillation, Heart Failure, Diabetes Mellitus, Hyperlipidemia, Sleep Apnea/CPAP/BIPAP, Thyroid Disorder Additional Past Medical History / Comment(s): Blood on cologuard test, diverticulitis, History of Any Multi-Drug Resistant Organisms: None Reported Past Surgical History: Adenoidectomy, Tonsillectomy Additional Past Surgical History / Comment(s): colonoscopy, Past Anesthesia/Blood Transfusion Reactions: Motion Sickness Past Psychological History: No Psychological Hx Reported Smoking Status: Former smoker - Past Family History Mother Family Medical History: No Reported History General Exam Limitations: no limitations General appearance: alert, in no apparent distress Head exam: Present: atraumatic, normocephalic Eye exam: Present: normal appearance, PERRL, EOMI. Absent: scleral icterus, conjunctival injection ENT exam: Present: normal oropharynx Neck exam: Present: normal inspection Respiratory exam: Present: normal lung sounds bilaterally. Absent: respiratory distress, wheezes, rales, rhonchi, stridor, accessory muscle use Cardiovascular Exam: Present: regular rate, normal rhythm, normal heart sounds. Absent: systolic murmur, diastolic murmur, rubs, gallop GI/Abdominal exam: Present: soft. Absent: distended, tenderness, guarding, re bound, rigid, mass Extremities exam: Present: normal inspection, normal capillary refill. Absent: pedal edema, calf tenderness Back exam: Present: normal inspection. Absent: CVA tenderness (R), CVA tenderness (L) Neurological exam: Present: alert, oriented X3. Absent: motor sensory deficit Skin exam: Present: warm, intact, normal color, diaphoretic. Absent: rash Course Vital Signs 01/09/24 01/09/24 01/09/24 19:04 19:46 20:00 Temperature 98.4 F Pulse Rate 72 71 70 Respiratory 20 18 18 Rate Blood Pressure 155/69 138/74 124/68 O2 Sat by Pulse 99 96 96 Oximetry 01/09/24 01/09/24 21:00 21:30 Temperature Pulse Rate 71 75 Respiratory 17 16 Rate Blood Pressure 151/78 169/77 O2 Sat by Pulse 97 98 Oximetry EKG Findings - EKG Results: EKG: interpreted by ERMD, sinus rhythm (Rate 70 bpm) - Blocks, [place], Hypertrophy, ST Abn: AV and intraventricular conduction: intraventricular conduction delay Repolarization changes or abnormalities: nonspecific abnormality, ST segment, and/or T wave Medical Decision Making - Medical Decision Making The patient had chest x-ray that I interpreted as negative for acute infiltrate, pneumothorax, congestive heart failure Was pt. sent in by a medical professional or institution (ALBERTA Cooley, [facility] TECHNICAL ARCHITECT, urgent care, hospital, or penitentiary...) When possible be specific @ -[No] Did you speak to anyone other than the patient for history (EMS, parent, family, police, friend...)? What history was obtained from this source @ -[No] Did you review nursing and triage notes (agree or disagree)? Why? @ -[I reviewed and agree with nursing and triage notes] Were old charts reviewed (outside hosp., previous admission, EMS record, old EKG, old radiological studies, urgent care reports/EKG's, penitentiary records)? Report findings @ -[No old charts were reviewed] Differential Diagnosis (chest pain, altered mental status, abdominal pain women, abdominal pain men, vaginal bleeding, weakness, fever, dyspnea, syncope, headache, dizziness, GI bleed, back pain, seizure, CVA, palpatations, mental health, musculoskeletal)? @ -[Differential Weakness: Hypoglycemia, shock, sepsis, hyponatremia, anemia, infection, [place], ETOH, adverse medicine reaction, overdose, stroke, this is not meant to be an all-inclusive list. EKG interpreted by me (3pts min.). @ -[I interpreted as above] X-rays interpreted by me (1pt min.). @ -[I interpreted as above CT interpreted by me (1pt min.). @ -[None done] U/S interpreted by me (1pt. min.). @ -[None done] What testing was considered but not performed or refused? (CT, X-rays, U/S, labs)? Why? @ -[None] What meds were considered but not given or refused? Why? @ -[None] Did you discuss the management of the patient with other professionals (professionals i.e. , PA, [facility] TECHNICAL ARCHITECT, lab, RT, psych nurse, oncology social work, chief of pediatric urology, teacher, quality officer, case management coordinator)? Give summary @ -[No] Was smoking cessation discussed for >3mins.? @ -[No] Was critical care preformed (if so, how long)? @ -[No] Were there social determinants of health that impacted care today? How? (Homelessness, low income, unemployed, alcoholism, drug addiction, transportat ion, low edu. Level, literacy, decrease access to med. care, shelter, rehab)? @ -[No] Was there de-escalation of care discussed even if they declined (Discuss DNR or withdrawal of care, Hospice)? DNR status @ -[No] What co-morbidities impacted this encounter? (DM, HTN, Smoking, COPD, CAD, Cancer, CVA, ARF, Chemo, Hep., AIDS, mental health diagnosis, sleep apnea, morbid obesity)? @ -[Diabetes Was patient admitted / discharged? Hospital course, mention meds given and route, prescriptions, significant lab abnormalities, going to OR and other pertinent info. @ -[h patient is a 68-year-old man here after he was not feeling well following yard work. The patient found to be hypoglycemic. Following treatment he notes that all symptoms have resolved he feels well and wants to go home. We discus sed appropriate further care and follow-up patient to discuss with his physician whether he should continue Ozempic. Undiagnosed new problem with uncertain prognosis? @ -[No] Drug Therapy requiring intensive monitoring for toxicity (Heparin, Nitro, Insulin, Cardizem)? @ -[No] Were any procedures done? @ -[No] Diagnosis/symptom? @ -[Acute hypoglycemia Acute, or Chronic, or Acute on Chronic? @ -[Acute Uncomplicated (without systemic symptoms) or Complicated (systemic symptoms)? @ -[Uncomplicated Side effects of treatment? @ -[No] Exacerbation, Progression, or Severe Exacerbation? @ -[No] Poses a threat to life or bodily function? How? (Chest pain, [place], [place], pneumonia, PE, COPD, DKA, ARF, appy, cholecystitis, CVA, Diverticulitis, Homicidal, Suicidal, threat to staff... and all critical care pts) @ -[No] - Lab Data Result diagrams: 01/09/24 19:35 01/09/24 19:35 Lab Results 01/09/24 01/09/24 01/09/24 Range/Units 19:35 19:35 19:35 WBC 9.2 (3.8-10.6) k/uL RBC 4.18 L (4.30-5.90) m/uL Hgb 14.1 (13.0-17.5) gm/dL Hct 41.5 (39.0-53.0) % MCV 99.2 (80.0-100.0) fL MCH 33.6 (25.0-35.0) pg MCHC 33.9 (31.0-37.0) g/dL RDW 13.5 (11.5-15.5) % Plt Count 174 (150-450) k/uL MPV 7.9 Neutrophils % 80 % Lymphocytes % 11 % Monocytes % 5 % Eosinophils % 0 % Basophils % 1 % Neutrophils # 7.4 (1.3-7.7) k/uL Lymphocytes # 1.0 (1.0-4.8) k/uL Monocytes # 0.5 (0-1.0) k/uL Eosinophils # 0.0 (0-0.7) k/uL Basophils # 0.1 (0-0.2) k/uL PT 11.5 (10.0-12.5) sec INR 1.1 (<1.2) APTT 29.0 (22.0-30.0) sec Sodium 134 L (137-145) mmol/L Potassium 3.8 (3.5-5.1) mmol/L Chloride 104 (98-107) mmol/L Carbon Dioxide 23 (22-30) mmol/L Anion Gap 7 mmol/L BUN 22 H (9-20) mg/dL Creatinine 1.52 H (0.66-1.25) mg/dL Est GFR (CKD-EPI)AfAm 54 (>60 ml/min/1.73 sqM) Est GFR (CKD-EPI)NonAf 46 (>60 ml/min/1.73 sqM) Glucose 46 L* (74-99) mg/dL POC Glucose (mg/dL) (70-110) mg/dL POC Glu Foreign Bank[employer] Teller Trader ID Plasma Lactic Acid Branden (0.7-2.0) mmol/L Calcium 8.9 (8.4-10.2) mg/dL Magnesium 1.9 (1.6-2.3) mg/dL Total Bilirubin 0.5 (0.2-1.3) mg/dL AST 26 (17-59) U/L ALT 23 (4-49) U/L Alkaline Phosphatase 34 L (38-126) U/L Troponin I (0.000-0.034) ng/mL Total Protein 6.7 (6.3-8.2) g/dL Albumin 4.1 (3.5-5.0) g/dL Urine Color Urine Appearance (Clear) Urine pH (5.0-8.0) Ur Specific Wilson (1.001-1.035) Urine Protein (Negative) Urine Glucose (UA) (Negative) Urine Ketones (Negative) Urine Blood (Negative) Urine Nitrite (Negative) Urine Bilirubin (Negative) Urine Urobilinogen (<2.0) mg/dL Ur Leukocyte Esterase (Negative) Acetone, Qual Negative (Negative) 01/09/24 01/09/24 01/09/24 Range/Units 19:35 20:09 21:24 WBC (3.8-10.6) k/uL RBC (4.30-5.90) m/uL Hgb (13.0-17.5) gm/dL Hct (39.0-53.0) % MCV (80.0-100.0) fL MCH (25.0-35.0) pg MCHC (31.0-37.0) g/dL RDW (11.5-15.5) % Plt Count (150-450) k/uL MPV Neutrophils % % Lymphocytes % % Monocytes % % Eosinophils % % Basophils % % Neutrophils # (1.3-7.7) k/uL Lymphocytes # (1.0-4.8) k/uL Monocytes # (0-1.0) k/uL Eosinophils # (0-0.7) k/uL Basophils # (0-0.2) k/uL PT (10.0-12.5) sec INR (<1.2) APTT (22.0-30.0) sec Sodium (137-145) mmol/L Potassium (3.5-5.1) mmol/L Chloride (98-107) mmol/L Carbon Dioxide (22-30) mmol/L Anion Gap mmol/L BUN (9-20) mg/dL Creatinine (0.66-1.25) mg/dL Est GFR (CKD-EPI)AfAm (>60 ml/min/1.73 sqM) Est GFR (CKD-EPI)NonAf (>60 ml/min/1.73 sqM) Glucose (74-99) mg/dL POC Glucose (mg/dL) 148 H (70-110) mg/dL POC Glu Foreign [employer] Teller Trader ID Óscar Chase Plasma Lactic Acid Branden 1.5 (0.7-2.0) mmol/L Calcium (8.4-10.2) mg/dL Magnesium (1.6-2.3) mg/dL Total Bilirubin (0.2-1.3) mg/dL AST (17-59) U/L ALT (4-49) U/L Alkaline Phosphatase (38-126) U/L Troponin I <0.012 (0.000-0.034) ng/mL Total Protein (6.3-8.2) g/dL Albumin (3.5-5.0) g/dL Urine Color Urine Appearance (Clear) Urine pH (5.0-8.0) Ur Specific Wilson (1.001-1.035) Urine Protein (Negative) Urine Glucose (UA) (Negative) Urine Ketones (Negative) Urine Blood (Negative) Urine Nitrite (Negative) Urine Bilirubin (Negative) Urine Urobilinogen (<2.0) mg/dL Ur Leukocyte Esterase (Negative) Acetone, Qual (Negative) 01/09/24 01/09/24 Range/Units 21:40 22:06 WBC (3.8-10.6) k/uL RBC (4.30-5.90) m/uL Hgb (13.0-17.5) gm/dL Hct (39.0-53.0) % MCV (80.0-100.0) fL MCH (25.0-35.0) pg MCHC (31.0-37.0) g/dL RDW (11.5-15.5) % Plt Count (150-450) k/uL MPV Neutrophils % % Lymphocytes % % Monocytes % % Eosinophils % % Basophils % % Neutrophils # (1.3-7.7) k/uL Lymphocytes # (1.0-4.8) k/uL Monocytes # (0-1.0) k/uL Eosinophils # (0-0.7) k/uL Basophils # (0-0.2) k/uL PT (10.0-12.5) sec INR (<1.2) APTT (22.0-30.0) sec Sodium (137-145) mmol/L Potassium (3.5-5.1) mmol/L Chloride (98-107) mmol/L Carbon Dioxide (22-30) mmol/L Anion Gap mmol/L BUN (9-20) mg/dL Creatinine (0.66-1.25) mg/dL Est GFR (CKD-EPI)AfAm (>60 ml/min/1.73 sqM) Est GFR (CKD-EPI)NonAf (>60 ml/min/1.73 sqM) Glucose (74-99) mg/dL POC Glucose (mg/dL) 110 (70-110) mg/dL POC Glu Foreign [employer] Teller Trader ID Óscar Chase Plasma Lactic Acid Branden (0.7-2.0) mmol/L Calcium (8.4-10.2) mg/dL Magnesium (1.6-2.3) mg/dL Total Bilirubin (0.2-1.3) mg/dL AST (17-59) U/L ALT (4-49) U/L Alkaline Phosphatase (38-126) U/L Troponin I (0.000-0.034) ng/mL Total Protein (6.3-8.2) g/dL Albumin (3.5-5.0) g/dL Urine Color Colorless Urine Appearance Clear (Clear) Urine pH 5.0 (5.0-8.0) Ur Specific Wilson 1.014 (1.001-1.035) Urine Protein Negative (Negative) Urine Glucose (UA) 2+ H (Negative) Urine Ketones Negative (Negative) Urine Blood Negative (Negative) Urine Nitrite Negative (Negative) Urine Bilirubin Negative (Negative) Urine Urobilinogen <2.0 (<2.0) mg/dL Ur Leukocyte Esterase Negative (Negative) Acetone, Qual (Negative) Disposition Clinical Impression: Hypoglycemia Disposition: HOME SELF-CARE Condition: Good Instructions (If sedation given, give patient instructions): Hypoglycemia in a Person with Diabetes (ED) Is patient prescribed a controlled substance at d/c from ED?: No Referrals: Venu Montana DO [Primary Care Provider] - 1-2 days
[2024-01-09 20:32] LABS: Basophils # (A) 0.1 k/uL (0-0.2); Basophils % (A) 1 %; Eosinophils % (A) 0 %; HCT 41.5 % (39.0-53.0); HGB 14.1 gm/dL (13.0-17.5); Lymphocytes % (A) 11 %; MCH 33.6 pg (25.0-35.0); MCHC 33.9 g/dL (31.0-37.0); MCV 99.2 fL (80.0-100.0); Mean Platelet Volume 7.9; Monocytes # (A) 0.5 k/uL (0-1.0); Monocytes % (A) 5 %; Neutrophils # (A) 7.4 k/uL (1.3-7.7); Neutrophils % (A) 80 %; Platelet Count 174 k/uL (150-450); RBC 4.18 m/uL (4.30-5.90); RDW 13.5 % (11.5-15.5); WBC 9.2 k/uL (3.8-10.6)
[2024-01-09 20:41] LABS: ALT 23 U/L (4-49); AST 26 U/L (17-59); African American GFR (CKD) 54 (>60 ml/min/1.73 sqM); Albumin 4.1 g/dL (3.5-5.0); Alkaline Phosphatase 34 U/L (38-126); Anion Gap 7 mmol/L; Blood Urea Nitrogen 22 mg/dL (9-20); Calcium 8.9 mg/dL (8.4-10.2); Carbon Dioxide 23 mmol/L (22-30); Chloride 104 mmol/L (98-107); Magnesium 1.9 mg/dL (1.6-2.3); Non-African American GFR(CKD) 46 (>60 ml/min/1.73 sqM); Potassium 3.8 mmol/L (3.5-5.1); Sodium 134 mmol/L (137-145); Total Bilirubin 0.5 mg/dL (0.2-1.3); Total Protein 6.7 g/dL (6.3-8.2)
[2024-01-09 20:43] LABS: Glucose 46 mg/dL (74-99)
[2024-01-09] MEDS: DEXTROSE 50% SYRINGE 50 ML IVP STA (20:50)
[2024-01-09] MEDS: SODIUM CHLORIDE 0.9% 1,000 ML IV ONE (20:50)
--- NOTE | 2024-01-09 21:02 | XR ---
EXAMINATION TYPE: XR chest 2V DATE OF EXAM: 01/09/2024 8:33 PM CLINICAL INDICATION:Male, 68 years old with history of syncope; COMPARISON: Chest radiographs from 10/05/2023 TECHNIQUE: XR chest 2V Frontal and lateral views of the chest. FINDINGS: Lungs/Pleura: There is no evidence of pleural effusion, focal consolidation, or pneumothorax. Pulmonary vascularity: Unremarkable. Heart/mediastinum: Cardiomediastinal silhouette is unremarkable. Musculoskeletal: No acute osseous pathology. IMPRESSION: No acute cardiopulmonary disease/process.
[2024-01-09 21:08] LABS: INR 1.1 (<1.2); Prothrombin Time 11.5 sec (10.0-12.5)
[2024-01-09 21:25] LABS: Glucose,Whole Blood 148 mg/dL (70-110)
[2024-01-09 22:02] VITALS: BP 169/77; PULSE 75; RESP 16
[2024-01-09 22:02] LABS: Appearance,Urine Clear (Clear); Bilirubin,Urine Negative (Negative); Blood,Urine Negative (Negative); Color,Urine Colorless; Glucose,Urine (UA) 2+ (Negative); Ketones,Urine Negative (Negative); Leukocyte Esterase,Urine Negative (Negative); Nitrite,Urine Negative (Negative); Protein,Urine Negative (Negative); Specific Gravity,Urine 1.014 (1.001-1.035); Urobilinogen,Urine <2.0 mg/dL (<2.0)
[2024-01-09 22:07] LABS: Glucose,Whole Blood 110 mg/dL (70-110)
== END 2024-01-09 22:11 | disposition home or self-care (01) ==
LOC: EC 19:00
DX: E11.649 Type 2 diabetes mellitus with hypoglycemia without coma (principal); Z79.84 Long term (current) use of oral hypoglycemic drugs; Z87.891 Personal history of nicotine dependence
CPT/HCPCS: 36415; 71046; 80053; 81003; 82009; 83605; 83735; 84484; 85025; 85610; 85730; 93005; 96361; 96374; 99285

== ENCOUNTER → 2024-04-11 | Outpatient (CLI) | payer MEDICARE | LOC: 3 N SLEEP 11:20 | PROVIDERS: ATTEND Internal Medicine | CPT/HCPCS: 99212 ==

== ENCOUNTER → 2024-12-27 | Outpatient (CLI) | payer MEDICARE ==
[2024-12-27 15:25] VITALS: BP 136/69; PULSE 60; RESP 16; TEMP 98.6
--- NOTE | 2024-12-27 17:32 | P.PROGSL ---
Subjective DATE: 12/27/2024 FOLLOW UP VISIT. Patient with obstructive sleep apnea hypopnea syndrome return to sleep center for follow-up visit. Information from previous visit have been reviewed. Patient is using PAP equipment every night for the whole night, getting PAP supplies in time. The patient does not have significant problems with the mask, PAP unit and humidification. Hanna sleepiness scale is 3, which is normal. I checked information from PAP unit. PAP unit pressure 5-12, average 11.2 cm H2O. Usage is 100% for more then 4 hours, average 6.7 hours per night. Leak is 34 l/m, which is in acceptable range. Apnea Hypopnea Index is 3.4, which is normal. MEDICATIONS have been reviewed, please see below. During physical exam: GENERAL: A pleasant patient without any distress. VITAL SIGNS: Please see below, weight is 218 lbs. HEENT: PERRLA, EOMI.low position of soft palate, Mallapati 3. NECK: Supple. No JVD. LUNGS: Clear to percussion and to auscultation. Good air exchange. No wheezing or rhonchi. HEART: S1, S2 regular. ABDOMEN: Soft and nontender.[] EXTREMITIES: No clubbing or cyanosis. LEGAL BILLING CLERK: Awake, alert, and oriented x3. No focal deficit. Impressions: 1. Obstructive sleep apnea-hypopnea syndrome. Patient demonstrated great compliance with treatment, benefiting from treatment. 2. Diabetes mellitus, according to patient hemoglobin A1c 7.1. 3. Obesity, patient increased weight on 3 pounds, BMI 33.1. 4. Hypertension. 5. History of atrial fibrillation. Plan: 1. Continue using PAP equipment every night for the whole night. 2. Sleep hygiene with regular time in bed for at least 7.5-8 hours 3. PAP unit should stay lower then position of the head. 4. Advised patient to remove all remaining water from humidifier canister daily and make it dry after each usage. Refill canister with fresh distilled water before each usage. 5. Watching weight. 6. Precautions related to driving. No driving if feel any sleepiness. 7. I will maintain prescription for PAP supplies including mask, tube, filters. 8. Follow up visit in 8 months or earlier if patient has any problems. Thank you very much for allowing me to participate in the management of your patient. Mauri Sandoval MD, PhD, FAASM. Diplomat of [place] [employer], Sleep Medicine Board by [place] [employer] [facility] [place] Objective - Vital Signs Vital Signs: Vital Signs Temp 98.6 F 12/27/24 15:24 Pulse 60 12/27/24 15:24 Resp 16 12/27/24 15:24 BP 136/69 12/27/24 15:24 Pulse Ox 96 12/27/24 15:24 FiO2 Intake & Output 12/26/24 12/27/24 12/27/24 18:59 06:59 18:59 Weight 98.883 kg Home Medications: Home Medications Medication Instructions Recorded Confirmed Type Rosuvastatin Calcium [Crestor] 10 mg PO DAILY 02/20/18 12/27/24 History Metoprolol Tartrate [Lopressor] 50 mg PO BID 04/18/18 12/27/24 History Mv-Min/Folic/K1/Lycopen/Lutein 1 tab PO DAILY 04/18/18 12/27/24 History [Centrum Silver Men Tablet] Amiodarone [Cordarone] 100 mg PO DAILY 08/28/21 12/27/24 History Apixaban [Eliquis] 5 mg PO BID 08/28/21 12/27/24 History Fenofibrate Nanocrystallized 48 mg PO W/SUPPER 08/28/21 12/27/24 History [Fenofibrate] Furosemide [Lasix] 40 mg PO DAILY 08/28/21 12/27/24 History Levothyroxine Sodium [Synthroid] 75 mcg PO AC-BRKFST 08/28/21 12/27/24 History Losartan [Cozaar] 12.5 mg PO DAILY 08/28/21 12/27/24 History Pioglitazone [Actos] 45 mg PO DAILY 08/28/21 12/27/24 History Spironolactone [Aldactone] 12.5 mg PO DAILY 08/28/21 12/27/24 History Turmeric Root Extract [Turmeric] 500 mg PO MOTH 08/28/21 12/27/24 History glipiZIDE [Glucotrol] 10 mg PO DAILY 08/28/21 12/27/24 History Psyllium Husk [Metamucil] 2 gm PO BID 01/09/24 12/27/24 History Semaglutide [Ozempic] 1 mg SQ WE 01/09/24 01/09/24 History
== END ==
LOC: 3 N SLEEP 15:11
PROVIDERS: ATTEND Internal Medicine
DX: G47.33 Obstructive sleep apnea (adult) (pediatric) (principal); E11.9 Type 2 diabetes mellitus without complications; E66.9 Obesity, unspecified; Z68.33 Body mass index [BMI] 33.0-33.9, adult; Z86.79 Personal history of other diseases of the circulatory system; Z87.891 Personal history of nicotine dependence; Z99.89 Dependence on other enabling machines and devices
CPT/HCPCS: 99212